=== PATIENT | female | born 1975 | race Caucasian/White ===

== ENCOUNTER 2017-01-09 01:11 | Emergency (ER) | payer OTHER ==
--- NOTE | 2017-01-09 01:36 | ERPHSYRPT ---
- History of Present Illness Time Seen by Provider: 01/09/17 01:25 Source: patient Patient Subjective Stated Complaint: PT STATES SINCE 01/05/17 SHE HAS HAD A FEVER AND PAIN IN HER MOUTH, STATES THE PAIN IS WORSE WHEN SHE SWALLOWS BUT HER TONGUE, TEETH, AND LIPS HURT WELL. REPORTS SHE HAS CONSISTENLY RUN A FEVER OF 101 AT HOME THAT SHE TAKES TYLENOL FOR. WAS SEEN AT [facility] 01/06/17, TESTED NEGATIVE FOR STREP AND WAS GIVEN AN ANTIOBIOTC INJECTION WELL AN RX. REPORTS SHE HAS BEEN UNDER A LOT OF STRESS LATELY WITH HER DAUGHTER GETTING , A IN THE FAMILY AND A COUSIN WHO IS MISSING. Triage Nursing Assessment: PT IS AOX3, PUPILS PERRL, PT IS FEBRILE, RESPS ARE EASY AND NON LABORED, SKIN IS FLUSHED, WARM TO TOUCH AND DRY. RADIAL PULSES STRONG AND EQUAL. MUCOUS MEMBRANES ARE MOIST. Physician History: The patient is a 42-year-old female complaining of a worsening sore throat for 3 days. She's had a fever of 101 intermittently for those 3 days. She wakes up at night with sweats. Her throat hurts to swallow. She went to [facility] and the strep test was negative but they gave her a shot of a steroid and prescription for Keflex. Her past medical history is significant for bariatric surgery and kidney stones. Timing/Duration: gradual onset Severity: severe ENT Location: throat Prearrival Treatment: prescription meds Modifying Factors: Improves With: nothing Associated Symptoms: ear pain (L), fever, sore throat Allergies/Adverse Reactions: metronidazole [From Flagyl] Allergy (Intermediate, Verified 01/09/17 01:25) Swelling of Tongue and Lips Metronidazole HCl [From Flagyl] Allergy (Intermediate, Verified 01/09/17 01:25) Swelling of Tongue and Lips morphine Allergy (Mild, Verified 01/09/17 01:25) Swelling strawberry [[place]] Allergy (Mild, Verified 01/09/17 01:25) Hives erythromycin base [Erythromycin Base] Adverse Reaction (Mild, Verified 01/09/17 01:25) Vomiting hydrocodone bitartrate [From Vicodin] Adverse Reaction (Mild, Verified 01/09/17 01:25) Vomiting banana [Banana] Adverse Reaction (Verified 01/09/17 01:25) Vomiting codeine [Codeine] Adverse Reaction (Verified 01/09/17 01:25) Vomiting egg Adverse Reaction (Verified 01/09/17 01:25) Vomiting Home Medications: Levothyroxine Sodium [Synthroid] 25 mcg PO DAILY 12/05/12 [History] Albuterol 2.5 mg/3 ml Neb [Proventil 2.5 mg/3 ml Neb] 2.5 mg IH DAILY [History] Calcium Carbonate [Calcium] 500 mg PO DAILY 11/05/14 [History] Calcium Carbonate/Vitamin D3 [Calcium 600-Vit D3 800 Caplet] 1 each PO DAILY [History] Loratadine 10 mg [Claritin 10 mg] 10 mg PO HS 11/05/14 [History] Multivitamin [Children's Multivitamins] 1 each PO DAILY 11/05/14 [History] Hx Tetanus, Diphtheria Vaccination/Date Given: No Hx Influenza Vaccination/Date Given: No Hx Pneumococcal Vaccination/Date Given: No Immunizations Up to Date: Yes - Review of Systems Constitutional: Fever Eyes: No Symptoms Ears, Nose, & Throat: Ear Pain, Throat Pain, Painful Swallowing Respiratory: No Cough, No Dyspnea Cardiac: No Chest Pain, No Edema, No Syncope Abdominal/Gastrointestinal: No Abdominal Pain, No Nausea, No Vomiting, No Diarrhea Genitourinary Symptoms: No Dysuria Musculoskeletal: No Back Pain, No Neck Pain Skin: No Rash Neurological: No Dizziness, No Focal Weakness, No Sensory Changes Psychological: No Symptoms Endocrine: No Symptoms Hematologic/Lymphatic: No Symptoms Immunological/Allergic: No Symptoms All Other Systems: Reviewed and Negative - Past Medical History Pertinent Past Medical History: Yes Neurological History: No Pertinent History ENT History: No Pertinent History Cardiac History: No Pertinent History Respiratory History: Asthma Endocrine Medical History: Hypothyroidism Musculoskeletal History: No Pertinent History GI Medical History: No Pertinent History, Gallbladder Disease History: Other Psycho-Social History: Anxiety Female Reproductive Disorders: Fibroids, Other Other Medical History: pt hx of kidney stones about seven years ago..passed them. Cysts on ovaries - Past Surgical History Past Surgical History: Yes Neuro Surgical History: No Pertinent History Cardiac: No Pertinent History Respiratory: No Pertinent History Gastrointestinal: Cholecystectomy Genitourinary: No Pertinent History Musculoskeletal: No Pertinent History Female Surgical History: Tubal Ligation, Other Other Surgical History: uterine ablation. WEIGHT LOSS SURGERY 2014 - Social History Smoking Status: Never smoker How long have you smoked: 5 YEARS Exposure to second hand smoke: No Drug Use: none Patient Lives Alone: No - Female History Hx Last Menstrual Period: ABLATION Hx Now: No - Nursing Vital Signs Nursing Vital Signs: Initial Vital Signs Temperature 100.2 F 01/09/17 01:14 Pulse Rate 112 H 01/09/17 01:14 Respiratory Rate 20 01/09/17 01:14 Blood Pressure 139/86 01/09/17 01:14 O2 Sat by Pulse Oximetry 96 01/09/17 01:14 Pain Scale Pain Intensity 10 - Physical Exam General Appearance: mild distress Eye Exam: bilateral eye: normal inspection, PERRL Ear Exam: left ear: TM normal Nasal Exam: normal inspection Throat Exam: tonsillar exudate, tonsillar swelling (aphthous ulcers in tongue tip and right pharynx.) Neck Exam: supple Cardiovascular/Respiratory Exam: normal breath sounds, regular rate/rhythm Abdominal Exam: non-tender, soft Neurologic Exam: alert, oriented x 3, sensation nml, No motor deficits Skin Exam: normal color, warm, dry SpO2 Interpretation: normal SpO2: 96 Oxygen Delivery: Room Air Ordered Tests: Active Orders 24 hr Category Date Time Status CULTURE, THROAT Stat Lab 01/09/17 01:42 Received STREP SCREEN-BETA A Stat Lab 01/09/17 01:42 Completed Medication Summary Discontinued Medications Generic Name Dose Route Start Last Admin Trade Name Freq PRN Reason Stop Dose Admin Al Hydrox/Mg Hydrox/Simethicone Confirm 01/09/17 01:49 Maalox Es 30 Ml Unit Dose Administered 01/09/17 01:50 Dose 60 ml .ROUTE .STK-MED ONE Lidocaine HCl Confirm 01/09/17 01:49 Xylocaine Hcl Viscous * Administered 01/09/17 01:50 Dose 15 ml .ROUTE .STK-MED ONE Magnesium Hydroxide 45 ml 01/09/17 01:45 01/09/17 01:53 Gi Cocktail 45 Ml (Maalox/Lidocaine) PO 01/09/17 01:46 45 ml STAT ONE Administration Lab/Rad Data: Laboratory Results 01/09/17 Range/Units 01:42 Streptococcus Screen NEGATIVE (Negative) - Progress Progress: improved Progress Note: 01/09/17 02:20 gargling a GI cocktail has lessened pt's throat pain. Counseled pt/family regarding: lab results, diagnosis - Departure Time of Disposition: 02:21 Departure Disposition: Home Clinical Impression: Pharyngitis Condition: Stable Critical Care Time: No Referrals: MAHSA MAYERS MD [Primary Care Provider] - Additional Instructions: Your rapid strep test was negative. You have pharyngitis. Continue gargling small sips of the GI cocktail as needed. Take Tylenol as needed. Discontinue the Keflex. Take Augmentin 875 one tablet twice a day for 10 days. Follow-up as needed. Prescriptions: Amoxicillin/Potassium Clav [Augmentin 875-125 Tablet] 875 mg PO BID #20 tablet
[2017-01-09] MEDS ORDERED: GI COCKTAIL 45 ML (Maalox/Lidocaine) PO ONE (01:45)
[2017-01-09] MEDS ORDERED: XYLOCAINE HCl Viscous ONE (01:49)
[2017-01-09] MEDS ORDERED: MAALOX ES 30 ML UNIT DOSE ONE (01:49)
[2017-01-09] MEDS ORDERED: ZOFRAN ODT 4 MG PO ONE (02:21)
[2017-01-09] MEDS ORDERED: ZOFRAN ODT 4 MG ONE (02:36)
[2017-01-09 03:17] VITALS: BP 124/78; PULSE 80; O2SAT 98
== END 2017-01-09 03:10 | disposition home or self-care (01) ==
LOC: ED 01:11
DX: J02.9 Acute pharyngitis, unspecified (principal); R50.9 Fever, unspecified
CPT/HCPCS: 87070; 87430; 99283; Q0162; A9270-GY

== ENCOUNTER 2017-12-10 15:23 | Emergency (ER) | payer BC ==
[2017-12-10] MEDS ORDERED: Zofran 4 MG/2 ML VIAL IV ONE (15:39)
[2017-12-10] MEDS ORDERED: Sodium Chloride 0.9% 1000 ML 1,000 ML IV STA (15:39)
--- NOTE | 2017-12-10 15:39 | ERPHSYRPT ---
- History of Present Illness Time Seen by Provider: 12/10/17 15:35 Historian: patient Exam Limitations: no limitations Physician History: The patient is a 42-year-old female complaining yesterday of not feeling well. She had a little bit of a neck pain on the left side yesterday. When she woke up today, she also had a headache and had used little bit of a stiff neck where it was painful for her to move her head from side to side. She also complained of some nausea and tingling in her left shoulder and left arm. She also states that she has some tingling in her upper left chest. She complains of mild shortness of breath. Most of her complaints are very vague. She did not go to work yesterday or today. Her past medical history is significant for depression and hypothyroidism. Timing/Duration: yesterday, gradual onset, worse Activities at Onset: none Quality: aching Location: shoulder Chest Pain Radiation: neck, arm Severity of Pain-Max: mild Severity of Pain-Current: mild Modifying Factors: Improves With: nothing Associated Symptoms: nausea, shortness of breath, No vomiting, No palpitations Prior Chest Pain/Cardiac Workup: no prior chest pain Nitro Today/Relief: no nitro taken today Aspirin Treatment Today: no aspirin today Allergies/Adverse Reactions: metronidazole [From Flagyl] Allergy (Intermediate, Verified 12/10/17 15:43) Swelling of Tongue and Lips Metronidazole HCl [From Flagyl] Allergy (Intermediate, Verified 12/10/17 15:43) Swelling of Tongue and Lips morphine Allergy (Mild, Verified 12/10/17 15:43) Swelling strawberry [[place]] Allergy (Mild, Verified 12/10/17 15:43) Hives erythromycin base [Erythromycin Base] Adverse Reaction (Mild, Verified 12/10/17 15:43) Vomiting hydrocodone bitartrate [From Vicodin] Adverse Reaction (Mild, Verified 12/10/17 15:43) Vomiting banana [Banana] Adverse Reaction (Verified 12/10/17 15:43) Vomiting codeine [Codeine] Adverse Reaction (Verified 12/10/17 15:43) Vomiting egg Adverse Reaction (Verified 12/10/17 15:43) Vomiting Home Medications: Levothyroxine Sodium [Synthroid] 25 mcg PO DAILY 12/05/12 [History] Albuterol 2.5 mg/3 ml Neb [Proventil 2.5 mg/3 ml Neb] 2.5 mg IH DAILY [History] Calcium Carbonate [Calcium] 500 mg PO DAILY 11/05/14 [History] Calcium Carbonate/Vitamin D3 [Calcium 600-Vit D3 800 Caplet] 1 each PO DAILY [History] Loratadine 10 mg [Claritin 10 mg] 10 mg PO HS 11/05/14 [History] Multivitamin [Children's Multivitamins] 1 each PO DAILY 11/05/14 [History] Cyanocobalamin (Vitamin B-12) [Cobal-1000] 1 ml WEEKLY 12/10/17 [History] Hx Tetanus, Diphtheria Vaccination/Date Given: No Hx Influenza Vaccination/Date Given: No Hx Pneumococcal Vaccination/Date Given: No - Review of Systems Constitutional: No Fever, No Chills Eyes: No Symptoms Ears, Nose, & Throat: No Symptoms Respiratory: Dyspnea Cardiac: Chest Pain Abdominal/Gastrointestinal: Nausea, No Abdominal Pain, No Vomiting, No Diarrhea Genitourinary Symptoms: No Dysuria Musculoskeletal: No Back Pain, No Neck Pain Skin: No Rash Neurological: No Dizziness, No Focal Weakness, No Sensory Changes Psychological: No Symptoms Endocrine: No Symptoms Hematologic/Lymphatic: No Symptoms Immunological/Allergic: No Symptoms All Other Systems: Reviewed and Negative - Past Medical History Pertinent Past Medical History: Yes Neurological History: No Pertinent History ENT History: No Pertinent History Cardiac History: No Pertinent History Respiratory History: Asthma Endocrine Medical History: Hypothyroidism Musculoskeletal History: No Pertinent History GI Medical History: No Pertinent History, Gallbladder Disease History: Other Psycho-Social History: Anxiety Female Reproductive Disorders: Fibroids, Other Other Medical History: pt hx of kidney stones about seven years ago..passed them. Cysts on ovaries - Past Surgical History Past Surgical History: Yes Neuro Surgical History: No Pertinent History Cardiac: No Pertinent History Respiratory: No Pertinent History Gastrointestinal: Cholecystectomy Genitourinary: No Pertinent History Musculoskeletal: No Pertinent History Female Surgical History: Tubal Ligation, Other Other Surgical History: uterine ablation. WEIGHT LOSS SURGERY 2014 - Social History Smoking Status: Never smoker How long have you smoked: 5 YEARS Exposure to second hand smoke: No Drug Use: none Patient Lives Alone: No - Nursing Vital Signs Nursing Vital Signs: Initial Vital Signs Temperature 97.0 F 12/10/17 15:37 Pulse Rate 80 12/10/17 15:37 Respiratory Rate 16 12/10/17 15:37 Blood Pressure 133/82 12/10/17 15:37 O2 Sat by Pulse Oximetry 99 12/10/17 15:37 Pain Scale Pain Intensity 0 - Physical Exam General Appearance: no apparent distress, alert Eye Exam: PERRL/EOMI, eyes nml inspection Ears, Nose, Throat Exam: normal ENT inspection, moist mucous membranes Neck Exam: normal inspection, non-tender, supple, full range of motion Respiratory Exam: normal breath sounds, lungs clear, No respiratory distress Cardiovascular Exam: regular rate/rhythm, normal heart sounds Gastrointestinal/Abdomen Exam: soft, No tenderness, No mass Pelvic Exam: not done Rectal Exam: not done Back Exam: normal inspection, No CVA tenderness, No vertebral tenderness Extremity Exam: normal inspection, normal range of motion Neurologic Exam: alert, oriented x 3, cooperative, normal mood/affect, sensation nml, No motor deficits Skin Exam: normal color, warm, dry SpO2 Interpretation: normal - Course EKG Interpreted by Me: RATE, Sinus Rhythm, NORMAL AXIS, NORMAL INTERVALS, NORMAL QRS, NORMAL ST-T - Radiology Exams Chest X-ray Interpretation: Interpreted by me, Negative Ordered Tests: Active Orders 24 hr Category Date Time Status Clean Catch Urine Specimen STAT Care 12/10/17 15:39 Active EKG-ER Only STAT Care 12/10/17 15:39 Active IV Insertion STAT Care 12/10/17 15:39 Active CHEST 2 VIEWS (PA AND LAT) Stat Exams 12/10/17 15:40 Taken CBC W DIFF Stat Lab 12/10/17 15:40 Completed CMP Stat Lab 12/10/17 15:40 Completed CULTURE,URINE Stat Lab 12/10/17 17:11 Received TROPONIN Q3H Lab 12/10/17 15:40 Completed TROPONIN Q3H Lab 12/10/17 18:45 Ordered TROPONIN Q3H Lab 12/10/17 21:45 Ordered TROPONIN Q3H Lab 12/11/17 00:45 Ordered TROPONIN Q3H Lab 12/11/17 03:45 Ordered UA W/ MICROSCOPIC Stat Lab 12/10/17 17:11 Completed Medication Summary Generic Name Dose Route Start Last Admin Trade Name Freq PRN Reason Stop Dose Admin Cephalexin HCl 1,000 mg 12/10/17 17:56 Keflex 500 Mg PO 12/10/17 17:57 STAT ONE Discontinued Medications Generic Name Dose Route Start Last Admin Trade Name Danita PRN Reason Stop Dose Admin Sodium Chloride 1,000 mls @ 999 mls/hr 12/10/17 15:39 12/10/17 16:20 Sodium Chloride 0.9% 1000 Ml IV 12/10/17 16:39 999 mls/hr .Q1H1M STA Administration Sodium Chloride Confirm 12/10/17 15:54 Sodium Chloride 0.9% 1000 Ml Administered 12/10/17 15:55 Dose 1,000 mls @ ud .ROUTE .STK-MED ONE Ondansetron HCl 4 mg 12/10/17 15:39 12/10/17 16:21 Zofran 4 Mg/2 Ml Vial IV 12/10/17 15:40 4 mg STAT ONE Administration Ondansetron HCl Confirm 12/10/17 15:54 Zofran 4 Mg/2 Ml Vial Administered 12/10/17 15:55 Dose 4 mg .ROUTE .STK-MED ONE Lab/Rad Data: Laboratory Result Diagrams 12/10/17 15:40 12/10/17 15:40 Laboratory Results 12/10/17 12/10/17 12/10/17 Range/Units 17:11 15:40 15:40 WBC (4.0-10.5) K/mm3 RBC (4.1-5.4) M/mm3 Hgb (12.0-16.0) gm/dl Hct (35-47) % MCV (78-100) fl MCH (26-32) pg MCHC (32-36) g/dl RDW (11.5-14.0) % Plt Count (150-450) K/mm3 MPV (6-9.5) fl Gran % (36.0-66.0) % Eos # (Auto) (0-0.5) Absolute Lymphs (auto) (1.0-4.6) Absolute Monos (auto) (0.0-1.3) Lymphocytes % (24.0-44.0) % Monocytes % (0.0-12.0) % Eosinophils % (0.00-5.0) % Basophils % (0.0-0.4) % Absolute Granulocytes (1.4-6.9) Basophils # (0-0.4) Sodium 143 (137-145) mmol/L Potassium 3.9 (3.5-5.1) mmol/L Chloride 107 (98-107) mmol/L Carbon Dioxide 27 (22-30) mmol/L Anion Gap 13.6 (5-15) MEQ/L BUN 19 H (7-17) mg/dL Creatinine 0.77 (0.52-1.04) mg/dL Estimated GFR > 60.0 ML/MIN Glucose 95 (74-106) mg/dL Calcium 9.3 (8.4-10.2) mg/dL Total Bilirubin 0.20 (0.2-1.3) mg/dL AST 21 (14-36) U/L ALT 23 (0-35) U/L Alkaline Phosphatase 60 (38-126) U/L Troponin I < 0.012 (0.000-0.034) ng/mL Serum Total Protein 8.0 (6.3-8.2) g/dL Albumin 4.5 (3.5-5.0) g/dL Ur Collection Type VOID Urine Color YELLOW (YELLOW) Urine Appearance CLEAR (CLEAR) Urine pH 7.0 (5-6) Ur Specific [place] 1.015 (1.005-1.025) Urine Protein NEGATIVE (Negative) Urine Ketones NEGATIVE (NEGATIVE) Urine Blood NEGATIVE (0-5) Myles/ul Urine Nitrite NEGATIVE (NEGATIVE) Urine Bilirubin NEGATIVE (NEGATIVE) Urine Urobilinogen NORMAL (0-1) mg/dL Ur Leukocyte Esterase 2+ (NEGATIVE) Urine Microscopic RBC 0-2 (0-2) /HPF Urine Microscopic WBC 10-15 (0-5) /HPF Ur Epithelial Cells MODERATE (FEW) /HPF Urine Bacteria FEW (NEGATIVE) /HPF Urine Culture Reflexed YES (NO) Urine Glucose NEGATIVE (NEGATIVE) mg/dL Specimen Received 12/10 170912/10/17 Range/Units 15:40 WBC 8.3 (4.0-10.5) K/mm3 RBC 4.31 (4.1-5.4) M/mm3 Hgb 13.2 (12.0-16.0) gm/dl Hct 39.2 (35-47) % MCV 91.0 (78-100) fl MCH 30.6 (26-32) pg MCHC 33.7 (32-36) g/dl RDW 13.5 (11.5-14.0) % Plt Count 331 (150-450) K/mm3 MPV 10.2 H (6-9.5) fl Gran % 58.7 (36.0-66.0) % Eos # (Auto) 0.40 (0-0.5) Absolute Lymphs (auto) 2.36 (1.0-4.6) Absolute Monos (auto) 0.63 (0.0-1.3) Lymphocytes % 28.3 (24.0-44.0) % Monocytes % 7.6 (0.0-12.0) % Eosinophils % 4.8 (0.00-5.0) % Basophils % 0.6 (0.0-0.4) % Absolute Granulocytes 4.90 (1.4-6.9) Basophils # 0.05 (0-0.4) Sodium (137-145) mmol/L Potassium (3.5-5.1) mmol/L Chloride (98-107) mmol/L Carbon Dioxide (22-30) mmol/L Anion Gap (5-15) MEQ/L BUN (7-17) mg/dL Creatinine (0.52-1.04) mg/dL Estimated GFR ML/MIN Glucose (74-106) mg/dL Calcium (8.4-10.2) mg/dL Total Bilirubin (0.2-1.3) mg/dL AST (14-36) U/L ALT (0-35) U/L Alkaline Phosphatase (38-126) U/L Troponin I (0.000-0.034) ng/mL Serum Total Protein (6.3-8.2) g/dL Albumin (3.5-5.0) g/dL Ur Collection Type Urine Color (YELLOW) Urine Appearance (CLEAR) Urine pH (5-6) Ur Specific [place] (1.005-1.025) Urine Protein (Negative) Urine Ketones (NEGATIVE) Urine Blood (0-5) Myles/ul Urine Nitrite (NEGATIVE) Urine Bilirubin (NEGATIVE) Urine Urobilinogen (0-1) mg/dL Ur Leukocyte Esterase (NEGATIVE) Urine Microscopic RBC (0-2) /HPF Urine Microscopic WBC (0-5) /HPF Ur Epithelial Cells (FEW) /HPF Urine Bacteria (NEGATIVE) /HPF Urine Culture Reflexed (NO) Urine Glucose (NEGATIVE) mg/dL Specimen Received - Progress Progress: improved Air Movement: good Blood Culture(s) Obtained: No Antibiotics given: Yes Counseled pt/family regarding: lab results, diagnosis, rad results - Departure Time of Disposition: 17:58 Departure Disposition: Home Clinical Impression: Stress, Nausea, UTI (urinary tract infection) Condition: Stable Critical Care Time: No Referrals: MAHSA MAYERS MD [Primary Care Provider] - Additional Instructions: You have left-sided neck and left sided chest tightness likely due to stress. You have mild nausea. You have a UTI. You were given Zofran 4 mg by IV and fluids in the ER. You were given Keflex 500 mg orally in the ER. Take the next Keflex 500 mg given to you in the ER in the morning. Take Keflex 500 mg 4 times a day for 7 days. Follow-up with your primary medical doctor early next week. Prescriptions: Cephalexin Mh 500 mg [Keflex 500 mg] 1 cap PO QID #28 capsule
[2017-12-10] MEDS ORDERED: Sodium Chloride 0.9% 1000 ML 1,000 ML ONE (15:54)
[2017-12-10] MEDS ORDERED: Zofran 4 MG/2 ML VIAL ONE (15:54)
[2017-12-10 16:02] LABS: ALBUMIN 4.5 g/dL (3.5-5.0); ALKALINE PHOSPHATASE 60 U/L (38-126); ANION GAP 13.6 MEQ/L (5-15); BLOOD UREA NITROGEN 19 mg/dL (7-17); CHLORIDE 107 mmol/L (98-107); Calcium 9.3 mg/dL (8.4-10.2); Carbon Dioxide 27 mmol/L (22-30); Creatinine 1 0.77 mg/dL (0.52-1.04); Glucose 95 mg/dL (74-106); Potassium 3.9 mmol/L (3.5-5.1); SGOT/AST 21 U/L (14-36); SGPT/ALT 23 U/L (0-35); SODIUM 143 mmol/L (137-145)
[2017-12-10 16:06] LABS: BASOPHIL % 0.6 % (0.0-0.4); Basophil (Absolute #) 0.05 (0-0.4); Eosinophil % 4.8 % (0.00-5.0); Granulocytes % 58.7 % (36.0-66.0); Hematocrit 39.2 % (35-47); Hemoglobin 13.2 gm/dl (12.0-16.0); Lymphocyte (Absolute #) 2.36 (1.0-4.6); Lymphocytes % 28.3 % (24.0-44.0); Mean Corpuscular Hemoglobin 30.6 pg (26-32); Mean Corpuscular Hgb Concent. 33.7 g/dl (32-36); Mean Platelet Volume 10.2 fl (6-9.5); Monocyte (Absolute #) 0.63 (0.0-1.3); Monocytes % 7.6 % (0.0-12.0); Platelet Count 331 K/mm3 (150-450); Red Blood Count 4.31 M/mm3 (4.1-5.4); Red Cell Distribution Width 13.5 % (11.5-14.0); White Blood Count 8.3 K/mm3 (4.0-10.5)
[2017-12-10 17:20] LABS: Appearance CLEAR (CLEAR); Glucose NEGATIVE (NEGATIVE); Ketones NEGATIVE (NEGATIVE); Leukocyte Esterase 2+ (NEGATIVE); Nitrite NEGATIVE (NEGATIVE); Protein,Urine Dip NEGATIVE (Negative); Specific Gravity 1.015 (1.005-1.025)
[2017-12-10 17:21] LABS: Bilirubin NEGATIVE (NEGATIVE); Blood NEGATIVE Ery/ul (0-5); Urobilinogen NORMAL mg/dL (0-1)
[2017-12-10 17:23] LABS: Epithelial Cells MODERATE /HPF (FEW); RBC 0-2 /HPF (0-2)
[2017-12-10 17:24] LABS: Bacteria FEW /HPF (NEGATIVE)
[2017-12-10] MEDS ORDERED: KEFLEX 500 MG PO ONE (17:56)
[2017-12-10] MEDS ORDERED: KEFLEX 500 MG ONE (18:07)
[2017-12-10 18:26] VITALS: BP 108/66; PULSE 71; O2SAT 97
--- NOTE | 2017-12-10 22:06 | XRAY ---
Indication: Chest pain. Comparison: May 21, 2013. PA/lateral chest demonstrates normal heart, lungs, and bony thorax.
== END 2017-12-10 18:31 | disposition home or self-care (01) ==
LOC: ED 15:23
DX: F43.9 Reaction to severe stress, unspecified (principal); R11.0 Nausea; N39.0 Urinary tract infection, site not specified; R51 Headache; M54.2 Cervicalgia; R06.02 Shortness of breath; Z79.899 Other long term (current) drug therapy
CPT/HCPCS: 36000; 36415; 71046; 80053; 81000; 84484; 85025; 87086; 93005; 96360; 96374; 99284; J2405; A9270-GY

== ENCOUNTER 2019-12-24 04:34 | Observation (INO) | payer BC, OTHER ==
--- NOTE | 2019-12-24 04:54 | ERPHSYRPT ---
- History of Present Illness Source: patient Exam Limitations: no limitations Timing/Duration: week(s) (1), worse Fever Severity: moderate Associated Symptoms: cough, muscle aches, shortness of breath, No abdominal pain, No chest pain, No headache, No nausea/vomiting, No rhinorrhea, No sore throat, No weakness Hx Tetanus, Diphtheria Vaccination/Date Given: No Hx Influenza Vaccination/Date Given: No Hx Pneumococcal Vaccination/Date Given: No <JADE SOLIS - Last Filed: 12/24/19 06:53> <CRISITNA PACHECO - Last Filed: 12/24/19 13:30> - History of Present Illness Time Seen by Provider: 12/24/19 04:53 Physician History: This is a 44-year-old white female who has been home and under quarantine because of exposure to individuals with positive COVID-19 tests. She works at [employer]. The patient has been tested in the past for COVID-19 virus and in the past is been negative. Patient has had fever, shortness of breath, dizziness and cough for approximately 1 week. Patient's temperature at home was 102 F. She took a gram of Tylenol and on arrival to the emergency department her temperature was 100.6 F. Patient has had associated muscle aches and arthralgias. Patient took an old Z-behzad during the last week. Patient has not lost her taste or smell. Patient has a history of hypothyroidism and asthma. Patient has had a Michael-en-Y weight loss surgical procedure performed in the past. She is a former smoker. She denies nausea vomiting and diarrhea. She has no chest pain and she denies abdominal pain (JADE SOLIS) Allergies/Adverse Reactions: metronidazole [From Flagyl] Allergy (Intermediate, Verified 12/24/19 05:06) Swelling of Tongue and Lips Metronidazole HCl [From Flagyl] Allergy (Intermediate, Verified 12/24/19 05:06) Swelling of Tongue and Lips morphine Allergy (Mild, Verified 12/24/19 05:06) Swelling strawberry [[place]] Allergy (Mild, Verified 12/24/19 05:06) Hives erythromycin base [Erythromycin Base] Adverse Reaction (Mild, Verified 12/24/19 05:06) Vomiting hydrocodone bitartrate [From Vicodin] Adverse Reaction (Mild, Verified 12/24/19 05:06) Vomiting banana [Banana] Adverse Reaction (Verified 12/24/19 05:06) Vomiting codeine [Codeine] Adverse Reaction (Verified 12/24/19 05:06) Vomiting egg Adverse Reaction (Verified 12/24/19 05:06) Vomiting Home Medications: Levothyroxine Sodium [Synthroid] 25 mcg PO DAILY 12/05/12 [History] Albuterol 2.5 mg/3 ml Neb [Proventil 2.5 mg/3 ml Neb] 2.5 mg IH DAILY 11/05/14 [History] Calcium Carbonate [Calcium] 200 mg PO TID 11/05/14 [History] Calcium Carbonate/Vitamin D3 [Calcium 600-Vit D3 800 Caplet] 1 each PO DAILY 11/05/14 [History] Multivitamin [Children's Multivitamins] 1 each PO DAILY 11/05/14 [History] Cyanocobalamin (Vitamin B-12) [Cobal-1000] 1 ml SL DAILY 12/10/17 [History] Travel Risk - International Travel Have you traveled outside of the country in past 3 weeks: No - Coronavirus Screening Are you exhibiting any of the following symptoms?: Yes Symptoms: Fever, Cough: New Onset, Shortness of Breath, Headaches/Body Aches/Fatigue Close contact with a COVID-19 positive Pt in past 14-21 Days: Yes <JADE SOLIS - Last Filed: 12/24/19 06:53> - Review of Systems Constitutional: Fever Eyes: No Symptoms Ears, Nose, & Throat: No Symptoms Respiratory: Cough, Dyspnea Cardiac: No Symptoms Abdominal/Gastrointestinal: No Symptoms Genitourinary Symptoms: No Symptoms Musculoskeletal: Arthralgias, Myalgias Skin: No Symptoms Neurological: Dizziness Psychological: No Symptoms Endocrine: No Symptoms Hematologic/Lymphatic: No Symptoms Immunological/Allergic: No Symptoms All Other Systems: Reviewed and Negative <JADE SOLIS - Last Filed: 12/24/19 06:53> - Past Medical History Pertinent Past Medical History: Yes Neurological History: No Pertinent History ENT History: No Pertinent History Cardiac History: No Pertinent History Respiratory History: Asthma Endocrine Medical History: Hypothyroidism Musculoskeletal History: No Pertinent History GI Medical History: No Pertinent History, Gallbladder Disease History: Other Psycho-Social History: Anxiety Female Reproductive Disorders: Fibroids, Other Other Medical History: pt hx of kidney stones about seven years ago..passed them. Cysts on ovaries - Past Surgical History Past Surgical History: Yes Neuro Surgical History: No Pertinent History Cardiac: No Pertinent History Respiratory: No Pertinent History Gastrointestinal: Cholecystectomy Genitourinary: No Pertinent History Musculoskeletal: No Pertinent History Female Surgical History: Tubal Ligation, Other Other Surgical History: uterine ablation. WEIGHT LOSS SURGERY 2014 - Social History Smoking Status: Never smoker How long have you smoked: 5 YEARS Exposure to second hand smoke: No Drug Use: none Patient Lives Alone: No <JADE SOLIS - Last Filed: 12/24/19 06:53> - Nursing Vital Signs Nursing Vital Signs: Initial Vital Signs Temperature 100.6 F 12/24/19 04:55 Pulse Rate 106 H 12/24/19 04:55 Respiratory Rate 18 12/24/19 04:55 Blood Pressure 121/71 12/24/19 04:55 O2 Sat by Pulse Oximetry 95 12/24/19 04:55 Pain Scale Pain Intensity 0 - Course Nursing assessment & vital signs reviewed: Yes EKG Interpreted by Me: RATE (102), NORMAL AXIS, NORMAL INTERVALS, NORMAL QRS, Other (There are no ischemic changes on today's EKG. There is no change from comparison EKG dated 12/10/2017) <JADE SOLIS - Last Filed: 12/24/19 06:53> - CT Exams Chest CT Interpretation: Discussed w/radiologist (CTA chest neg for PE, but w Covid19 pneumonia appearance) <CRISTINA PACHECO - Last Filed: 12/24/19 13:30> Ordered Tests: Active Orders 24 hr Category Date Time Status EKG-ER Only STAT Care 12/24/19 04:56 Completed IV Insertion STAT Care 12/24/19 04:56 Completed CHEST 1 VIEW (PORTABLE) Stat Exams 12/24/19 05:00 Completed CHEST WITH CONTRAST [CT] Stat Exams 12/24/19 06:52 Completed BLOOD CULTURE Stat Lab 12/24/19 05:09 Received CBC Routine Lab 12/24/19 10:53 Completed CBC Stat Lab 12/24/19 05:20 Completed CMP AM.LAB Lab 12/25/19 04:00 Ordered CMP Stat Lab 12/24/19 05:09 Completed D-DIMER QUANTITATIVE Stat Lab 12/24/19 05:09 Completed Ferritin Stat Lab 12/24/19 05:09 Completed LDH-LACTATE DEHYDROGENASE Stat Lab 12/24/19 05:09 Completed Lactic Acid Stat Lab 12/24/19 05:15 Completed Jerauld Screen Stat Lab 12/24/19 05:09 Completed PROTIME WITH INR Stat Lab 12/24/19 05:09 Completed TROPONIN Q3H Lab 12/24/19 05:09 Completed TROPONIN Q3H Lab 12/24/19 08:53 Completed TROPONIN Q3H Lab 12/24/19 12:25 Completed TROPONIN Q3H Lab 12/24/19 14:00 Ordered TROPONIN Q3H Lab 12/24/19 17:00 Ordered UA W/RFX UR CULTURE Stat Lab 12/24/19 05:01 Completed Respiratory Therapy Assessment DAILY RT 12/24/19 05:47 Completed Transfer Order Routine Transfer 12/24/19 Completed Medication Summary Generic Name Dose Route Start Last Admin Trade Name Freq PRN Reason Stop Dose Admin Acetaminophen 650 mg 12/24/19 10:53 Tylenol 325 Mg PO 01/23/20 10:52 Q4H PRN PRN PAIN AND/OR FEVER Albuterol Sulfate 4 puff 12/24/19 15:00 12/24/19 12:52 Ventolin Common Canister IH 01/23/20 14:59 4 puff QIDRT JEREMIAS Administration Dexamethasone Sodium Phosphate 4 mg 12/24/19 22:00 Decadron 4 Mg Inj IV 01/23/20 21:59 BID JEREMIAS Enoxaparin Sodium 40 mg 12/24/19 12:00 12/24/19 12:10 Enoxaparin Sodium SQ 01/23/20 11:59 40 mg DAILY JEREMIAS Administration Sodium Chloride 500 mls @ 50 mls/hr 12/24/19 05:15 12/24/19 12:09 Sodium Chloride 0.9% 500 Ml IV 01/23/20 05:14 50 mls/hr .Q10H JEREMIAS Administration Ondansetron HCl 4 mg 12/24/19 10:53 Zofran 4 Mg/2 Ml Vial IV 01/23/20 10:52 Q6H PRN PRN NAUSEA/VOMITING Pantoprazole Sodium 40 mg 12/24/19 12:00 12/24/19 12:09 Protonix 40 Mg Iv IV 01/23/20 11:59 40 mg Q24H10 JEREMIAS Administration Discontinued Medications Generic Name Dose Route Start Last Admin Trade Name Danita PRN Reason Stop Dose Admin Acetaminophen 1,000 mg 12/24/19 04:56 12/24/19 05:10 Tylenol Extra Strength 500 Mg PO 12/24/19 04:57 1,000 mg STAT STA Administration Acetaminophen Confirm 12/24/19 05:08 Tylenol Extra Strength 500 Mg Administered 12/24/19 05:09 Dose 1,000 mg .ROUTE .STK-MED ONE Albuterol Sulfate 0 gm 12/24/19 06:00 12/24/19 05:49 Ventolin Hfa Mdi IH 01/23/20 05:59 8 gm 1XONLY JEREMIAS Administration Dexamethasone Sodium Phosphate 10 mg 12/24/19 06:14 12/24/19 06:36 Decadron 10mg Inj. IV 12/24/19 06:15 10 mg STAT ONE Administration Dexamethasone Sodium Phosphate Confirm 12/24/19 06:32 Decadron 10mg Inj. Administered 12/24/19 06:33 Dose 10 mg .ROUTE .STK-MED ONE Dexamethasone Sodium Phosphate 4 mg 12/24/19 10:47 12/24/19 10:58 Decadron 4 Mg Inj IV 12/24/19 10:48 4 mg STAT ONE Administration Dexamethasone Sodium Phosphate Confirm 12/24/19 10:55 Decadron 4 Mg Inj Administered 12/24/19 10:56 Dose 4 mg .ROUTE .STK-MED ONE Diphenhydramine HCl 50 mg 12/24/19 06:51 12/24/19 06:56 Benadryl 12.5 Mg/5 Ml PO 12/24/19 06:52 50 mg STAT ONE Administration Diphenhydramine HCl Confirm 12/24/19 06:56 Benadryl 12.5 Mg/5 Ml Administered 12/24/19 06:57 Dose 10 mg .ROUTE .STK-MED ONE Guaifenesin/Dextromethorphan 10 ml 12/24/19 06:23 12/24/19 06:38 Robitussin-Dm Syrup PO 12/24/19 06:24 10 ml STAT ONE Administration Azithromycin 500 mg in 250 mls @ 250 mls/hr 12/24/19 06:15 12/24/19 07:03 Zithromax 500 Mg/ 250 Ml Nacl Premix IV 12/24/19 07:14 Not Given STAT STA Ceftriaxone Sodium/Dextrose 1 g in 50 mls @ 100 mls/hr 12/24/19 06:22 12/24/19 09:53 Rocephin 1 Gm-D5w 50 Ml Bag IV 12/24/19 06:51 Infused STAT STA Infusion Ceftriaxone Sodium/Dextrose Confirm 12/24/19 06:33 Rocephin 1 Gm-D5w 50 Ml Bag Administered 12/24/19 06:34 Dose 1 g in 50 mls @ ud IV .STK-MED ONE Remdesivir 200 mg/ Sodium 250 mls @ 250 mls/hr 12/24/19 11:30 12/24/19 11:49 Chloride IV 12/24/19 12:29 250 mls/hr 1130 JEREMIAS Administration Sodium Chloride 1,000 mls @ 0 mls/hr 12/24/19 11:00 Sodium Chloride 0.9% 1000 Ml IV 01/23/20 10:59 .Q0M JEREMIAS KVO Pantoprazole Sodium 40 mg 12/25/19 10:00 Protonix 40 Mg Iv IV 01/24/20 09:59 Q24H10 JEREMIAS Lab/Rad Data: Laboratory Result Diagrams 12/24/19 10:53 12/24/19 05:09 Laboratory Results 12/24/19 12/24/19 12/24/19 Range/Units 10:53 08:53 05:20 WBC 5.1 (4.0-10.5) K/mm3 RBC 3.97 L (4.1-5.4) M/mm3 Hgb 12.1 (12.0-16.0) gm/dl Hct 37.4 (35-47) % MCV 94.2 (78-100) fl MCH 30.5 (26-32) pg MCHC 32.4 (32-36) g/dl RDW 14.6 H (11.5-14.0) % Plt Count 230 (150-450) K/mm3 MPV 10.7 (7.5-11.0) fl PT (9.95-12.35) SECONDS INR (0.8-3.0) D-Dimer (215-500) ng/mL Sodium (137-145) mmol/L Potassium (3.5-5.1) mmol/L Chloride (98-107) mmol/L Carbon Dioxide (22-30) mmol/L Anion Gap (5-15) MEQ/L BUN (7-17) mg/dL Creatinine (0.52-1.04) mg/dL Estimated GFR ML/MIN Glucose (74-106) mg/dL Lactic Acid (0.4-2.0) Calcium (8.4-10.2) mg/dL Ferritin (6.24-137) ng/mL Total Bilirubin (0.2-1.3) mg/dL AST (14-36) U/L ALT (0-35) U/L Alkaline Phosphatase (38-126) U/L Lactate Dehydrogenase (120-246) U/L Troponin I < 0.012 (0.000-0.034) ng/mL Serum Total Protein (6.3-8.2) g/dL Albumin (3.5-5.0) g/dL Urine Color (YELLOW) Urine Appearance (CLEAR) Urine pH (5-6) Ur Specific [place] (1.005-1.025) Urine Protein (Negative) Urine Ketones (NEGATIVE) Urine Blood (0-5) Myles/ul Urine Nitrite (NEGATIVE) Urine Bilirubin (NEGATIVE) Urine Urobilinogen (0-1) mg/dL Ur Leukocyte Esterase (NEGATIVE) Urine WBC (Auto) (0-5) /HPF Urine RBC (Auto) (0-2) /HPF U Hyaline Cast (Auto) (0-2) /LPF U Epithel Cells (Auto) (FEW) /HPF Urine Bacteria (Auto) (NEGATIVE) /HPF Calcium Oxalate Crystal (NEGATIVE) /HPF Urine Mucus (Auto) (NEGATIVE) /HPF Urine Culture Reflexed (NO) Urine Glucose (NEGATIVE) mg/dL Monoscreen (Negative) Influenza Type A Ag (NEGATIVE) Influenza Type B Ag (NEGATIVE) RSV (PCR) (Negative) SARS-CoV-2 (PCR) POSITIVE A (NEGATIVE) Group A Strep Antibody (NEGATIVE) 12/24/19 12/24/19 12/24/19 Range/Units 05:20 05:20 05:15 WBC 4.7 (4.0-10.5) K/mm3 RBC 3.91 L (4.1-5.4) M/mm3 Hgb 11.8 L (12.0-16.0) gm/dl Hct 36.2 (35-47) % MCV 92.6 (78-100) fl MCH 30.2 (26-32) pg MCHC 32.6 (32-36) g/dl RDW 14.5 H (11.5-14.0) % Plt Count 217 (150-450) K/mm3 MPV 10.5 (7.5-11.0) fl PT (9.95-12.35) SECONDS INR (0.8-3.0) D-Dimer (215-500) ng/mL Sodium (137-145) mmol/L Potassium (3.5-5.1) mmol/L Chloride (98-107) mmol/L Carbon Dioxide (22-30) mmol/L Anion Gap (5-15) MEQ/L BUN (7-17) mg/dL Creatinine (0.52-1.04) mg/dL Estimated GFR ML/MIN Glucose (74-106) mg/dL Lactic Acid 1.6 (0.4-2.0) Calcium (8.4-10.2) mg/dL Ferritin (6.24-137) ng/mL Total Bilirubin (0.2-1.3) mg/dL AST (14-36) U/L ALT (0-35) U/L Alkaline Phosphatase (38-126) U/L Lactate Dehydrogenase (120-246) U/L Troponin I (0.000-0.034) ng/mL Serum Total Protein (6.3-8.2) g/dL Albumin (3.5-5.0) g/dL Urine Color (YELLOW) Urine Appearance (CLEAR) Urine pH (5-6) Ur Specific [place] (1.005-1.025) Urine Protein (Negative) Urine Ketones (NEGATIVE) Urine Blood (0-5) Myles/ul Urine Nitrite (NEGATIVE) Urine Bilirubin (NEGATIVE) Urine Urobilinogen (0-1) mg/dL Ur Leukocyte Esterase (NEGATIVE) Urine WBC (Auto) (0-5) /HPF Urine RBC (Auto) (0-2) /HPF U Hyaline Cast (Auto) (0-2) /LPF U Epithel Cells (Auto) (FEW) /HPF Urine Bacteria (Auto) (NEGATIVE) /HPF Calcium Oxalate Crystal (NEGATIVE) /HPF Urine Mucus (Auto) (NEGATIVE) /HPF Urine Culture Reflexed (NO) Urine Glucose (NEGATIVE) mg/dL Monoscreen (Negative) Influenza Type A Ag NEGATIVE (NEGATIVE) Influenza Type B Ag NEGATIVE (NEGATIVE) RSV (PCR) NEGATIVE (Negative) SARS-CoV-2 (PCR) (NEGATIVE) Group A Strep Antibody NOT DETECTED (NEGATIVE) 12/24/19 12/24/19 12/24/19 Range/Units 05:09 05:09 05:09 WBC (4.0-10.5) K/mm3 RBC (4.1-5.4) M/mm3 Hgb (12.0-16.0) gm/dl Hct (35-47) % MCV (78-100) fl MCH (26-32) pg MCHC (32-36) g/dl RDW (11.5-14.0) % Plt Count (150-450) K/mm3 MPV (7.5-11.0) fl PT (9.95-12.35) SECONDS INR (0.8-3.0) D-Dimer (215-500) ng/mL Sodium (137-145) mmol/L Potassium (3.5-5.1) mmol/L Chloride (98-107) mmol/L Carbon Dioxide (22-30) mmol/L Anion Gap (5-15) MEQ/L BUN (7-17) mg/dL Creatinine (0.52-1.04) mg/dL Estimated GFR ML/MIN Glucose (74-106) mg/dL Lactic Acid (0.4-2.0) Calcium (8.4-10.2) mg/dL Ferritin 169 H (6.24-137) ng/mL Total Bilirubin (0.2-1.3) mg/dL AST (14-36) U/L ALT (0-35) U/L Alkaline Phosphatase (38-126) U/L Lactate Dehydrogenase (120-246) U/L Troponin I < 0.012 (0.000-0.034) ng/mL Serum Total Protein (6.3-8.2) g/dL Albumin (3.5-5.0) g/dL Urine Color (YELLOW) Urine Appearance (CLEAR) Urine pH (5-6) Ur Specific [place] (1.005-1.025) Urine Protein (Negative) Urine Ketones (NEGATIVE) Urine Blood (0-5) Myles/ul Urine Nitrite (NEGATIVE) Urine Bilirubin (NEGATIVE) Urine Urobilinogen (0-1) mg/dL Ur Leukocyte Esterase (NEGATIVE) Urine WBC (Auto) (0-5) /HPF Urine RBC (Auto) (0-2) /HPF U Hyaline Cast (Auto) (0-2) /LPF U Epithel Cells (Auto) (FEW) /HPF Urine Bacteria (Auto) (NEGATIVE) /HPF Calcium Oxalate Crystal (NEGATIVE) /HPF Urine Mucus (Auto) (NEGATIVE) /HPF Urine Culture Reflexed (NO) Urine Glucose (NEGATIVE) mg/dL Monoscreen NEGATIVE (Negative) Influenza Type A Ag (NEGATIVE) Influenza Type B Ag (NEGATIVE) RSV (PCR) (Negative) SARS-CoV-2 (PCR) (NEGATIVE) Group A Strep Antibody (NEGATIVE) 12/24/19 12/24/19 12/24/19 Range/Units 05:09 05:09 05:01 WBC (4.0-10.5) K/mm3 RBC (4.1-5.4) M/mm3 Hgb (12.0-16.0) gm/dl Hct (35-47) % MCV (78-100) fl MCH (26-32) pg MCHC (32-36) g/dl RDW (11.5-14.0) % Plt Count (150-450) K/mm3 MPV (7.5-11.0) fl PT 14.1 H (9.95-12.35) SECONDS INR 1.25 (0.8-3.0) D-Dimer 875 H* (215-500) ng/mL Sodium 137 (137-145) mmol/L Potassium 3.7 (3.5-5.1) mmol/L Chloride 106 (98-107) mmol/L Carbon Dioxide 25 (22-30) mmol/L Anion Gap 10.2 (5-15) MEQ/L BUN 11 (7-17) mg/dL Creatinine 0.63 (0.52-1.04) mg/dL Estimated GFR > 60.0 ML/MIN Glucose 110 H (74-106) mg/dL Lactic Acid (0.4-2.0) Calcium 8.6 (8.4-10.2) mg/dL Ferritin (6.24-137) ng/mL Total Bilirubin 0.40 (0.2-1.3) mg/dL AST 38 H (14-36) U/L ALT 24 (0-35) U/L Alkaline Phosphatase 61 (38-126) U/L Lactate Dehydrogenase 249 H (120-246) U/L Troponin I (0.000-0.034) ng/mL Serum Total Protein 7.2 (6.3-8.2) g/dL Albumin 3.7 (3.5-5.0) g/dL Urine Color YELLOW (YELLOW) Urine Appearance SLIGHTLY CLOUDY (CLEAR) Urine pH 5.0 (5-6) Ur Specific [place] 1.024 (1.005-1.025) Urine Protein 30 (Negative) Urine Ketones NEGATIVE (NEGATIVE) Urine Blood NEGATIVE (0-5) Myles/ul Urine Nitrite NEGATIVE (NEGATIVE) Urine Bilirubin NEGATIVE (NEGATIVE) Urine Urobilinogen NEGATIVE (0-1) mg/dL Ur Leukocyte Esterase NEGATIVE (NEGATIVE) Urine WBC (Auto) 0-2 (0-5) /HPF Urine RBC (Auto) 0-2 (0-2) /HPF U Hyaline Cast (Auto) 0-2 (0-2) /LPF U Epithel Cells (Auto) RARE (FEW) /HPF Urine Bacteria (Auto) RARE (NEGATIVE) /HPF Calcium Oxalate Crystal 11-25 (NEGATIVE) /HPF Urine Mucus (Auto) SLIGHT (NEGATIVE) /HPF Urine Culture Reflexed NO (NO) Urine Glucose NEGATIVE (NEGATIVE) mg/dL Monoscreen (Negative) Influenza Type A Ag (NEGATIVE) Influenza Type B Ag (NEGATIVE) RSV (PCR) (Negative) SARS-CoV-2 (PCR) (NEGATIVE) Group A Strep Antibody (NEGATIVE) - Progress Progress: improved, re-examined Counseled pt/family regarding: lab results, diagnosis, need for follow-up, rad results <JADE SOLIS - Last Filed: 12/24/19 06:53> - Progress Progress: improved Discussed with : Other (French) <CRISTINA PACHECO - Last Filed: 12/24/19 13:30> - Progress Progress Note: 12/24/19 06:19 Patient states that she cannot use codeine or hydrocodone and makes her very nauseous. She can has Bromfed DM at home. This works well for her. However, we do not have that combination medication here in this hospital. I will provide her with something close to those medications separately. Patient also states that although she cannot take erythromycin, she is able to take azithromycin (Z-Behzad) without any problems. 12/24/19 06:55 I discussed with and transferred care to shift change. I reviewed the patient history, condition, EKG findings, laboratory results. Patient will be following up on the CTA of chest that has been ordered (JADE SOLIS) 12/24/19 08:08 Assumed care of pt at shift change w cough/fever. Pt awaiting CTA of chest for +DD. She is stable w good sats. Lungs appear clear but decreased at bases. Will await CTA results for disposition. 12/24/19 10:45 Pt w pos Covid19 rapid test. OK for admit per Dr. Braswell. 12/24/19 13:28 Rad called w CTA usual Covid19 appearance (CRISTINA PACHECO) <JADE SOLIS - Last Filed: 12/24/19 06:53> - Departure Departure Disposition: Observation Critical Care Time: No <CRISTINA PACHECO - Last Filed: 12/24/19 13:30> - Departure Clinical Impression: COVID-19 Condition: Stable
[2019-12-24] MEDS ORDERED: TYLENOL EXTRA STRENGTH 500 MG PO STA (04:56)
[2019-12-24] MEDS ORDERED: TYLENOL EXTRA STRENGTH 500 MG ONE (05:08)
[2019-12-24] MEDS: Sodium Chloride 0.9% 500 ML 500 ML IV SCH ×2 (05:11→12:09)
[2019-12-24 05:42] LABS: Hematocrit 36.2 % (35-47); Hemoglobin 11.8 gm/dl (12.0-16.0); Mean Cell Volume 92.6 fl (78-100); Mean Corpuscular Hemoglobin 30.2 pg (26-32); Mean Corpuscular Hgb Concent. 32.6 g/dl (32-36); Mean Platelet Volume 10.5 fl (7.5-11.0); Platelet Count 217 K/mm3 (150-450); Red Blood Count 3.91 M/mm3 (4.1-5.4); Red Cell Distribution Width 14.5 % (11.5-14.0); White Blood Count 4.7 K/mm3 (4.0-10.5)
[2019-12-24] MEDS ORDERED: Ventolin Hfa MDI IH SCH (06:00)
[2019-12-24 06:05] LABS: INR 1.25 (0.8-3.0); PROTIME 14.1 SECONDS (9.95-12.35)
[2019-12-24 06:09] LABS: Group A Strep NOT DETECTED (NEGATIVE)
[2019-12-24] MEDS ORDERED: DECADRON 10MG INJ. IV ONE (06:14)
[2019-12-24] MEDS ORDERED: Zithromax 500 MG/ 250 ML NaCl Premix 500 MG/250 ML IVPB IV STA (06:15)
[2019-12-24 06:16] LABS: INFLUENZA A NEGATIVE (NEGATIVE); INFLUENZA B NEGATIVE (NEGATIVE); RESPIRATORY SYNCTIAL VIRUS NEGATIVE (Negative)
[2019-12-24 06:18] LABS: ALBUMIN 3.7 g/dL (3.5-5.0); ALKALINE PHOSPHATASE 61 U/L (38-126); ANION GAP 10.2 MEQ/L (5-15); BLOOD UREA NITROGEN 11 mg/dL (7-17); CHLORIDE 106 mmol/L (98-107); Calcium 8.6 mg/dL (8.4-10.2); Carbon Dioxide 25 mmol/L (22-30); Creatinine 1 0.63 mg/dL (0.52-1.04); EST GLOMERULAR FILTRATION RATE > 60.0 ML/MIN; Glucose 110 mg/dL (74-106); LDH-LACTATE DEHYDROGENASE 249 U/L (120-246); Potassium 3.7 mmol/L (3.5-5.1); SGOT/AST 38 U/L (14-36); SGPT/ALT 24 U/L (0-35); SODIUM 137 mmol/L (137-145); Total Protein 7.2 g/dL (6.3-8.2)
[2019-12-24 06:19] LABS: Appearance SLIGHTLY CLOUDY (CLEAR); Bacteria RARE /HPF (NEGATIVE); Bilirubin NEGATIVE (NEGATIVE); Blood NEGATIVE Ery/ul (0-5); Epithelial Cells RARE /HPF (FEW); Glucose NEGATIVE (NEGATIVE); Hyaline Casts 0-2 /LPF (0-2); Ketones NEGATIVE (NEGATIVE); Leukocyte Esterase NEGATIVE (NEGATIVE); Mucus SLIGHT /HPF (NEGATIVE); Nitrite NEGATIVE (NEGATIVE); Protein,Urine Dip 30 (Negative); RBC 0-2 /HPF (0-2); Specific Gravity 1.024 (1.005-1.025); Urobilinogen NEGATIVE mg/dL (0-1); WBC 0-2 /HPF (0-5)
[2019-12-24] MEDS ORDERED: ROCEPHIN 1 Gm-D5w 50 ml Bag** 1 G/50 ML IVPB IV STA (06:22)
[2019-12-24] MEDS ORDERED: Robitussin-Dm Syrup PO ONE (06:23)
[2019-12-24] MEDS ORDERED: DECADRON 10MG INJ. ONE (06:32)
[2019-12-24] MEDS ORDERED: ROCEPHIN 1 Gm-D5w 50 ml Bag** 1 G/50 ML IVPB IV ONE (06:33)
[2019-12-24] MEDS ORDERED: BENADRYL 12.5 MG/5 ML PO ONE (06:51)
[2019-12-24] MEDS ORDERED: BENADRYL 12.5 MG/5 ML ONE (06:56)
--- NOTE | 2019-12-24 09:11 | XRAY ---
Exam: CT of the chest with IV contrast from 12/24/2019. CTDI: 20.69 mGy Comparison: AP upright portable chest film from 12/24/2019. Indication: 44-year-old female with elevated d-dimer of 875, shortness breath, cough, fever, dizziness for week. Technique: Post-IV contrast axial images were obtained through the chest during automated injection of 80 cc of Isovue-370 contrast material using PE technique. Reconstructed coronal and sagittal images were created and reviewed. Findings: Frontal and lateral CT social scientist images reveal mild elevation of the right hemidiaphragm and evidence of prior cholecystectomy. The pulmonary arteries enhance adequately and reveal no filling defects to suggest clot/emboli. The thoracic aorta reveals no evidence of aneurysm or dissection. The heart size appears within normal limits. There appears to be a small pericardial effusion which measures up to 7 mm in AP dimension anteriorly. The visualized lower portion of the thyroid gland appears unremarkable. Mildly prominent nonspecific lymph nodes are seen within the pretracheal space, pericarinal region, and subcarinal in region. I believe it is likely these represent reactive lymph nodes. No abnormal axillary lymphadenopathy is seen. Some air is seen within the distal thoracic esophageal lumen. I cannot exclude a minimal hiatal hernia. Extensive surgical suture material is seen within the upper abdomen from prior gastric bypass surgery. I also see surgical clips consistent with prior cholecystectomy. The lung bowens appear abnormal revealing bilateral multifocal areas of groundglass opacification, many of them peripherally located. This is entirely consistent with Covid-19 pneumonia. I see no pneumothorax or suspicious soft tissue lung masses. No associated pleural fluid is seen. Mild hepatic steatosis is seen within the upper abdomen. The spleen is borderline to slightly enlarged measuring 13.7 cm in greatest cross-sectional diameter on axial image #225. No focal splenic mass is seen. The adrenal glands appear of normal size and configuration. The visualized pancreas appears grossly unremarkable. The skeleton reveals no acute fracture or aggressive bone lesion. Small anterior vertebral endplate spurs are seen within the thoracic spine. Impression: 1. I see no evidence of acute pulmonary embolism. 2. However, the peripheral lung bowens are very abnormal containing multiple bilateral groundglass opacities, predominantly in a peripheral distribution. These findings are consistent with Covid-19 pneumonia. I personally called this report to the emergency Department at 8:40 AM on 12/24/2019. 3. Mild pericardial effusion. 4. Hepatic steatosis, borderline to slight splenomegaly, evidence of prior cholecystectomy and gastric bypass surgery, and equivocal evidence of a minimal hiatal hernia are seen.
--- NOTE | 2019-12-24 09:27 | XRAY ---
Exam: AP upright portable chest film from 12/24/2019. Comparison: Two-view chest from 12/10/2017. Indication: Cough, shortness of breath, fever. Findings: The transverse heart size appears within normal limits. The pee and mediastinal structures appear unremarkable. There are subtle new scattered bilateral airspace/interstitial opacities, predominantly overlying the lower two thirds of each lung field. This represents a new and unfavorable change from 12/10/2017. This could represent an atypical pneumonia. Covid-19 pneumonia is included in this differential. No pneumothorax or pleural effusion is seen. No acute osseous process is seen. Impression: 1. New abnormal scattered groundglass/interstitial opacities throughout the lower two thirds of each lung representing an unfavorable change from 12/10/2017. The findings are consistent with atypical pneumonia. Covid-19 pneumonia must be considered in this case. Correlate clinically.
[2019-12-24] MEDS ORDERED: Decadron 4 MG INJ IV ONE (10:47)
[2019-12-24] MEDS ORDERED: REMDESIVIR IV ONE (10:48)
[2019-12-24] MEDS ORDERED: Zofran 4 MG/2 ML VIAL IV PRN (10:53)
[2019-12-24] MEDS ORDERED: TYLENOL 325 MG PO PRN (10:53)
[2019-12-24] MEDS ORDERED: Decadron 4 MG INJ ONE (10:55)
[2019-12-24] MEDS ORDERED: Combivent Inhaler COMMON CANISTER IH SCH (11:00)
[2019-12-24] MEDS ORDERED: Sodium Chloride 0.9% 1000 ML 1,000 ML IV SCH ×2 (11:00→17:30)
[2019-12-24 11:08] LABS: Hematocrit 37.4 % (35-47); Hemoglobin 12.1 gm/dl (12.0-16.0); Mean Cell Volume 94.2 fl (78-100); Mean Corpuscular Hemoglobin 30.5 pg (26-32); Mean Corpuscular Hgb Concent. 32.4 g/dl (32-36); Mean Platelet Volume 10.7 fl (7.5-11.0); Platelet Count 230 K/mm3 (150-450); Red Blood Count 3.97 M/mm3 (4.1-5.4); Red Cell Distribution Width 14.6 % (11.5-14.0); White Blood Count 5.1 K/mm3 (4.0-10.5)
[2019-12-24] MEDS ORDERED: REMDESIVIR 200 MG in Sodium Chloride 0.9% 250 ML 250 ML IV SCH (11:30)
[2019-12-24] MEDS: PROTONIX 40 MG IV IV SCH (12:09)
[2019-12-24] MEDS: ENOXAPARIN SODIUM SQ SCH (12:10)
[2019-12-24] MEDS: VENTOLIN COMMON CANISTER IH SCH ×3 (12:52→19:55)
[2019-12-24] MEDS: SYNTHROID 25 MCG PO SCH (16:47)
[2019-12-24] MEDS: Vitamin B-12 500 MCG PO SCH (16:47)
[2019-12-24] MEDS: Calcium 500MG W/Vit D Tablet PO SCH (16:47)
[2019-12-24] MEDS: THERAGRAN MULTIVITAMIN PO SCH (16:47)
[2019-12-24] MEDS: Robitussin-Dm Syrup PO PRN (18:50)
[2019-12-24] MEDS: Decadron 4 MG INJ IV SCH (20:34)
[2019-12-24] MEDS ORDERED: Ativan 1 MG PO SCH (22:00)
[2019-12-24] MEDS ORDERED: CALCIUM CARBONATE 200 MG PO SCH (22:00)
[2019-12-25] MEDS: Robitussin-Dm Syrup PO PRN ×2 (05:26→12:12)
[2019-12-25] MEDS ORDERED: VENTOLIN COMMON CANISTER IH PRN (05:48)
[2019-12-25 06:09] LABS: ALBUMIN 3.5 g/dL (3.5-5.0); ALKALINE PHOSPHATASE 59 U/L (38-126); ANION GAP 10.1 MEQ/L (5-15); BLOOD UREA NITROGEN 11 mg/dL (7-17); CHLORIDE 106 mmol/L (98-107); Calcium 8.9 mg/dL (8.4-10.2); Carbon Dioxide 26 mmol/L (22-30); Creatinine 1 0.55 mg/dL (0.52-1.04); EST GLOMERULAR FILTRATION RATE > 60.0 ML/MIN; Glucose 126 mg/dL (74-106); Potassium 3.9 mmol/L (3.5-5.1); SGOT/AST 58 U/L (14-36); SGPT/ALT 55 U/L (0-35); SODIUM 138 mmol/L (137-145); Total Protein 6.9 g/dL (6.3-8.2)
[2019-12-25] MEDS: VENTOLIN COMMON CANISTER IH SCH ×2 (08:05→11:30)
[2019-12-25] MEDS: Decadron 4 MG INJ IV SCH (09:46)
[2019-12-25] MEDS: THERAGRAN MULTIVITAMIN PO SCH (09:46)
[2019-12-25] MEDS: Vitamin B-12 500 MCG PO SCH (09:46)
[2019-12-25] MEDS: PROTONIX 40 MG IV IV SCH (09:46)
[2019-12-25] MEDS: Calcium 500MG W/Vit D Tablet PO SCH (09:47)
[2019-12-25] MEDS: SYNTHROID 25 MCG PO SCH (09:47)
[2019-12-25] MEDS: ENOXAPARIN SODIUM SQ SCH (09:47)
[2019-12-25] MEDS ORDERED: [UNRECOGNIZED DRUG - OTHER] PO SCH (10:00)
[2019-12-25] MEDS ORDERED: Cyanocobalamin B-12 1000 MCG/ML IJ SCH (10:00)
[2019-12-25] MEDS ORDERED: MULTIVITAMIN PO SCH (10:00)
[2019-12-25] MEDS ORDERED: PROVENTIL 2.5 MG/3 ML NEB IH SCH (10:00)
[2019-12-25] MEDS ORDERED: REMDESIVIR 100 MG in Sodium Chloride 0.9% 100 ML IVPB 100 ML IV SCH (10:00)
[2019-12-25] MEDS ORDERED: CALCIUM CARBONATE PO SCH (10:00)
[2019-12-25] MEDS ORDERED: VITAMIN D3 PO SCH (10:00)
[2019-12-25] MEDS ORDERED: PROTONIX 40 MG IV IV SCH (10:00)
--- NOTE | 2019-12-25 11:51 | HP ---
CHIEF COMPLAINT: Coughing, shortness of breath, extreme fatigue. 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 She said she was tested 10 days ago and was negative, but since that time, she started having shortness of breath, weakness, and felt terrible, so she finally got enough strength to come in and get tested again. She says she is not living with anybody, although she just got a child, as an adoptive type thing, to take care of yesterday. Her mother is available I guess to take care of the child and the dog. Temperature has been up to 102 last night. Has myalgia, decreased taste although it is present. PAST MEDICAL HISTORY: Hypothyroidism, asthma, nonsmoker. She did have a shae-en-y weight loss surgical procedure performed many years ago. No vomiting. No chest pain. HOME MEDICATIONS: Synthroid 25 mcg q day, albuterol 1 puff q day, calcium 500 q day, vitamin D q day, multiple vitamin, B12. ALLERGIES: FLAGYL, MORPHINE, STRAWBERRIES, ARITHROMYCIN BASE, HYDROCODONE, BANANA, CODEINE, EGGS. TRAVEL RISKS: None except for working at the correction. REVIEW OF SYSTEMS: CONSTITUTIONAL: Fever up to 102. HEENT: Tired eyes. CARDIAC: No symptoms. No rheumatic fever. No palpitations. ABDOMEN: No symptoms. GENITOURINARY: No problems. Kidney stones. PSYCH: No history of psychiatric illnesses. DIGITAL MEDIA DIRECTOR: History of fibroids. Cysts on ovaries. SURGERIES: Cholecystectomy, tubal ligation, weight loss surgery 2014. SOCIAL HISTORY: Smoking history - Smoked a pack a day for 5 years numerous years ago. PHYSICAL EXAMINATION: Patient is alert, oriented, pleasant, talkative, and intelligent. Temperature is around 100 degrees, pulse 90, respirations 16, BP 120/69, O2 saturation 94. HEENT: Pupils equal and reactive to light. NECK: Supple without adenopathy. CHEST: Clear. CVS: No murmurs or gallops. ABDOMEN: Soft, no masses or organomegaly. EXTREMITIES: No tenderness. No swelling. IMPRESSION/PLAN: 1. PATIENT IS POSITIVE FOR COVID-19 AND HAS COVID-19 SYMPTOMS AND FINDINGS. She has been treated with Zithromax, Rocephin, and a large dose of Decadron. At this time, will discontinue the Zithromax and Rocephin, adjust her Decadron. Put her on 200 of Remdesivir. Supplemental O2 to keep her O2 above 90 and Ativan PRN sleep. Although she is positive for COVID-19, I think she is stable and she should do well.
--- NOTE | 2019-12-25 11:59 | DS ---
DISCHARGE DIAGNOSIS: 1. COVID-19. 2. COVID-19 PNEUMONIA. 3. HYPOTHYROIDISM. 4. 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 BRIEF HISTORY: Patient woke up short of breath, coughing. Has already been isolated once before for COVID-19 when one of her co-workers had it. She works at the [employer] in [facility]. Said she felt like she had a high fever, chills, just felt terrible, and came to the Emergency Room. There, found her WBC was 4.7, electrolytes were normal. COVID-19 test was positive. Lactic acid was only 1.6. Ferritin was 169. Troponins were negative. D-dimer was only mildly elevated. CT scan didn't show any pulmonary embolism. She was started on dexamethasone IV and Remdesivir 200 q d, 100 q d following that, Ativan for sleep, and Rocephin and Zithromax were discontinued on the 2nd day because she does have a bacterial infection. She improved later on the and on the , she was much better, didn't require O2 except she desaturates slightly at night. She will be discharged home to return to work on the on the same medicine she came in on plus Prednisone 40 X 5, 20 X 5, 10 X 5. She is to call if she becomes short of breath or has high fever. Prognosis is good.
[2019-12-25 13:33] VITALS: O2SAT 94
[2019-12-25 14:31] VITALS: BP 127/66; PULSE 95
== END 2019-12-25 16:14 | disposition home or self-care (01) ==
LOC: ED 04:34 → MED SURG 11:42
PROVIDERS: ADMIT Family Medicine; ATTEND Family Medicine
DX: U07.1 COVID-19 (principal); J12.89 Other viral pneumonia; E03.9 Hypothyroidism, unspecified; M17.0 Bilateral primary osteoarthritis of knee; R53.83 Other fatigue; Z98.84 Bariatric surgery status; Z11.59 Encounter for screening for other viral diseases; Z79.899 Other long term (current) drug therapy
CPT/HCPCS: 36000; 36415; 71045; 71260; 80053; 81001; 82728; 83605; 83615; 84484; 85027; 85379; 85610; 86140; 86308; 87040; 87631; 87651; 93005; 93041; 93268; 94640; 94762; 96365; 96374; 96376; 99285; G0378; U0003; 96375; J0696; J1100; J1650; A9270-GY

== ENCOUNTER 2022-02-18 11:07 | Emergency (ER) | payer OTHER ==
[2022-02-18] MEDS ORDERED: Sodium Chloride 0.9% 1000 ML 1,000 ML IV STA (12:30)
[2022-02-18 12:41] LABS: Absolute Neutrophil Ct (ANC) 3.37 x10^3/uL (1.4-6.9); Basophil (Absolute #) 0.04 x10^3/uL (0-0.4); Eosinophil % 3.8 % (0.00-5.0); Eosinophil (Absolute #) 0.24 x10^3/uL (0-0.5); Hematocrit 38.6 % (35-47); Hemoglobin 12.4 g/dL (12.0-16.0); Lymphocyte (Absolute #) 2.13 x10^3/uL (1.0-4.6); Lymphocytes % 33.8 % (24.0-44.0); Mean Cell Volume 94.4 fL (78-100); Mean Corpuscular Hemoglobin 30.3 pg (26-32); Mean Corpuscular Hgb Concent. 32.1 g/dL (32-36); Mean Platelet Volume 9.9 fL (7.5-11.0); Monocyte (Absolute #) 0.51 x10^3/uL (0.0-1.3); Monocytes % 8.1 % (0.0-12.0); Neutrophil % 53.4 % (36.0-66.0); Platelet Count 356 x10^3/uL (150-450); Red Blood Count 4.09 x10^6/uL (4.1-5.4); Red Cell Distribution Width 13.2 % (11.5-14.0); White Blood Count 6.3 x10^3/uL (4.0-10.5)
[2022-02-18] MEDS ORDERED: Sodium Chloride 0.9% 1000 ML 1,000 ML ONE (12:43)
[2022-02-18 12:49] LABS: ALKALINE PHOSPHATASE 63 U/L (38-126); ANION GAP 9.3 MEQ/L (5-15); BLOOD UREA NITROGEN 14 mg/dL (7-17); CHLORIDE 107 mmol/L (98-107); Calcium 8.7 mg/dL (8.4-10.2); Carbon Dioxide 25 mmol/L (22-30); Creatinine 1 0.69 mg/dL (0.52-1.04); EST GLOMERULAR FILTRATION RATE > 60.0 ML/MIN; Glucose 99 mg/dL (74-106); Potassium 4.2 mmol/L (3.5-5.1); SGOT/AST 31 U/L (14-36); SGPT/ALT 29 U/L (0-35); SODIUM 137 mmol/L (137-145); Total Protein 7.1 g/dL (6.3-8.2)
[2022-02-18 12:50] LABS: Epithelial Cells RARE /HPF (FEW); Mucus SLIGHT /HPF (NEGATIVE); RBC 0-2 /HPF (0-2); WBC 0-2 /HPF (0-5)
[2022-02-18 12:53] LABS: Appearance SLIGHTLY CLOUDY (CLEAR)
[2022-02-18 12:54] LABS: Bilirubin NEGATIVE (NEGATIVE); Dipstick done @ ? MAIN LAB; Glucose NEGATIVE (NEGATIVE); Ketones NEGATIVE (NEGATIVE); Nitrite NEGATIVE (NEGATIVE); Ph 5.5 (5-6); Protein,Urine Dip NEGATIVE (Negative); RBC MODERATE Ery/ul (0-5); Specific Gravity 1.025 (1.005-1.025); Urine Cultured Indicated? NO; Urobilinogen 0.2 mg/dL (0-1)
--- NOTE | 2022-02-18 13:07 | XRAY ---
Indication: Dizziness. Elevated blood pressure. Multiple contiguous axial images obtained through the head without contrast. Comparison: None Normal appearing brain parenchyma, ventricles, and bony calvarium. Visualized paranasal sinuses and mastoid air cells are clear. Impression: Normal CT head without contrast exam.
--- NOTE | 2022-02-18 13:08 | XRAY ---
Indication: Dizziness. Elevated blood pressure. Comparison: September 16, 2020 Portable chest again demonstrates normal heart and lungs. Bony thorax intact. No new/acute findings.
[2022-02-18 13:18] LABS: Amphetamine,Urine NEGATIVE (NEGATIVE); Barbiturate,Urine NEGATIVE (NEGATIVE); Benzodiazepine,Urine NEGATIVE (NEGATIVE); Cocaine,Urine NEGATIVE (NEGATIVE); Methadone,Urine NEGATIVE (NEGATIVE); Opiate,Urine NEGATIVE (NEGATIVE); PCP,Urine NEGATIVE (NEGATIVE); THC,Urine NEGATIVE (NEGATIVE)
--- NOTE | 2022-02-18 14:07 | ERPHSYRPT ---
- History of Present Illness Time Seen by Provider: 02/18/22 11:14 Source: patient Exam Limitations: physical impairment Patient Subjective Stated Complaint: Pt has had 3 episodes of feeling dizzy in the past 3 months, she wrote it off to stress, today it began around 0830 and she was at work at [employer] and they took her blood pressure and it was 186/110 and they gave her a clonidine 0.1mg, pt did find her adult foster child 3 months ago too and pt was placed on Lexapro 2 months ago Triage Nursing Assessment: Pt was brought to the ER by her father, deven smith, denies pain, is feeling better than she did now that her pressure is lower, has been under a lot of stress lately, has never had BP issues before, pulses normal, skin n/w/d, denies ORTEGA/dizziness/or pain at this time, doesn't appear to be in any distress Physician History: 47 years old female with history of anxiety, depression presented in the ER with chief complaint of dizziness. Patient reports she has been having off-and-on dizziness for the last 3 months and today was her third episode. Usually her symptoms improve in 10 to 15 minutes but it took longer today. Patient reports she was working and all of a sudden she started feeling spinning sensation with mild nausea but no vomiting. She felt as if she was going to pass out. Her co workers checked her blood pressure and it was 180 systolic and she has no history of hypertension. She was given oral clonidine and is sent in here. Patient report her symptoms are improved. She denies any chest pain palpitations/pounding of the heart, shortness of breath etc. No fever or chills reported. Denies any focal numbness tingling or weakness. Does have history of migraine and had an episode yesterday and still having some frontal headache. Now she feels weak fatigued and tired. Timing/Duration: today, resolved prior to arrival Severity: moderate Character of Deficits: none Deficits: no difficulties Baseline/Normal Cognition: alert oriented x 3 Current Cognition: alert oriented x 3 Baseline Gait: walks w/o assistance Associated Symptoms: denies symptoms Allergies/Adverse Reactions: metronidazole [From Flagyl] Allergy (Intermediate, Verified 02/18/22 11:43) Swelling of Tongue and Lips Metronidazole HCl [From Flagyl] Allergy (Intermediate, Verified 02/18/22 11:43) Swelling of Tongue and Lips morphine Allergy (Mild, Verified 02/18/22 11:43) Swelling strawberry [[place]] Allergy (Mild, Verified 02/18/22 11:43) Hives erythromycin base [Erythromycin Base] Adverse Reaction (Mild, Verified 02/18/22 11:43) Vomiting hydrocodone bitartrate [From Vicodin] Adverse Reaction (Mild, Verified 02/18/22 11:43) Vomiting banana [Banana] Adverse Reaction (Verified 02/18/22 11:43) Vomiting codeine [Codeine] Adverse Reaction (Verified 02/18/22 11:43) Vomiting egg Adverse Reaction (Verified 02/18/22 11:43) Vomiting Home Medications: Levothyroxine Sodium [Synthroid] 25 mcg PO DAILY 12/05/12 [History] Albuterol 2.5 mg/3 ml Neb [Proventil 2.5 mg/3 ml Neb] 2.5 mg IH DAILY 11/05/14 [History] Calcium Carbonate [Calcium] 200 mg PO TID 11/05/14 [History] Calcium Carbonate/Vitamin D3 [Calcium 600-Vit D3 800 Caplet] 1 each PO DAILY 11/05/14 [History] Multivitamin [Children's Multivitamins] 2 each PO DAILY 11/05/14 [History] Cyanocobalamin (Vitamin B-12) [Cobal-1000] 1 ml SL DAILY 12/10/17 [History] Hx Tetanus, Diphtheria Vaccination/Date Given: No Hx Influenza Vaccination/Date Given: No Hx Pneumococcal Vaccination/Date Given: No Travel Risk - International Travel Have you traveled outside of the country in past 3 weeks: No - Coronavirus Screening Are you exhibiting any of the following symptoms?: No Close contact with a COVID-19 positive Pt in past 14-21 Days: No - Vaccine Status Have you recieved a Covid-19 vaccination: No - Review of Systems Constitutional: Fatigue, Weakness Eyes: No Symptoms Ears, Nose, & Throat: No Symptoms Respiratory: No Symptoms Cardiac: No Symptoms Abdominal/Gastrointestinal: Nausea Genitourinary Symptoms: No Symptoms Musculoskeletal: No Symptoms Skin: No Symptoms Neurological: Dizziness, Headache Psychological: Anxiety, Depression Endocrine: No Symptoms Hematologic/Lymphatic: No Symptoms Immunological/Allergic: No Symptoms - Past Medical History Pertinent Past Medical History: Yes Neurological History: No Pertinent History ENT History: No Pertinent History Cardiac History: No Pertinent History Respiratory History: Asthma Endocrine Medical History: Hypothyroidism Musculoskeletal History: No Pertinent History GI Medical History: No Pertinent History, Gallbladder Disease History: Other Psycho-Social History: Anxiety Female Reproductive Disorders: Fibroids, Other Other Medical History: pt hx of kidney stones about seven years ago..passed them. Cysts on ovaries - Past Surgical History Past Surgical History: Yes Neuro Surgical History: No Pertinent History Cardiac: No Pertinent History Respiratory: No Pertinent History Gastrointestinal: Cholecystectomy Genitourinary: No Pertinent History Musculoskeletal: No Pertinent History Female Surgical History: Tubal Ligation, Other Other Surgical History: uterine ablation. WEIGHT LOSS SURGERY 2014 - Social History Smoking Status: Never smoker How long have you smoked: 5 YEARS Exposure to second hand smoke: No Drug Use: none Patient Lives Alone: No - Female History Hx Last Menstrual Period: 02/17/2022 Hx Now: No - Nursing Vital Signs Nursing Vital Signs: Initial Vital Signs Temperature 97.3 F 02/18/22 11:31 Pulse Rate 84 02/18/22 11:31 Blood Pressure 132/61 02/18/22 11:31 O2 Sat by Pulse Oximetry 98 02/18/22 11:31 Pain Scale Pain Intensity 0 - Rachell Coma Scale Best Eye Response ([place]): (4) open spontaneously Best Verbal Response (Rachell): (5) oriented Best Motor Response ([place]): (6) obeys commands [place] Total: 15 - Physical Exam General Appearance: no apparent distress, alert, anxiety Eye Exam: bilateral eye: normal inspection, PERRL, EOMI Ears, Nose, Throat Exam: normal ENT inspection, TMs normal, pharynx normal, moist mucous membranes Neck Exam: normal inspection, non-tender, supple, full range of motion Respiratory: normal breath sounds, accessory muscle use Cardiovascular: regular rate/rhythm, normal heart sounds Gastrointestinal: soft, normal bowel sounds, No tenderness Back Exam: normal inspection, normal range of motion Extremity Exam: normal inspection, normal range of motion, pelvis stable Mental Status: alert, oriented x 3, cooperative, depressed affect earth moving machine operator Exam: normal hearing, normal speech, PERRL Coordination/Gait: normal finger to nose, normal gait, normal cerebellar function Motor/Sensory: no motor deficit, no sensory deficit, no pronator drift, negative Babinski's sign DTR: bicep (R): 2+, bicep (L): 2+, knee (R): 2+, knee (L): 2+ Skin Exam: normal color SpO2 Interpretation: normal SpO2: 98 O2 Delivery: Room Air - Course EKG Interpreted by Me: RATE (57), Sinus Memo, NORMAL AXIS, NORMAL INTERVALS, NORMAL QRS Ordered Tests: Active Orders 24 hr Category Date Time Status EKG-ER Only STAT Care 02/18/22 12:30 Completed IV Insertion STAT Care 02/18/22 12:30 Completed Orthostatic Vital Signs STAT Care 02/18/22 12:30 Completed CHEST 1 VIEW (PORTABLE) Stat Exams 02/18/22 12:30 Completed HEAD WITHOUT CONTRAST [CT] Stat Exams 02/18/22 12:30 Completed MRI BRAIN W & W/O CONTRAST [MRI] Stat Exams 02/18/22 16:04 Completed CBC W DIFF Stat Lab 02/18/22 12:30 Completed CMP Stat Lab 02/18/22 12:30 Completed Lactic Acid Stat Lab 02/18/22 12:30 Completed MAGNESIUM Stat Lab 02/18/22 12:30 Completed TROPONIN Q4H Lab 02/18/22 12:30 Completed UA W/RFX CULTURE Stat Lab 02/18/22 Completed Urine Triage Profile Stat Lab 02/18/22 13:04 Completed Medication Summary Discontinued Medications Generic Name Dose Route Start Last Admin Trade Name Freq PRN Reason Stop Dose Admin Sodium Chloride 1,000 mls @ 999 mls/hr 02/18/22 12:30 02/18/22 14:27 Sodium Chloride 0.9% 1000 Ml IV 02/18/22 13:30 Infused .Q1H1M STA Infusion Sodium Chloride Confirm 02/18/22 12:43 Sodium Chloride 0.9% 1000 Ml Administered 02/18/22 12:44 Dose 1,000 mls @ ud .ROUTE .STK-MED ONE Ondansetron HCl 4 mg 02/18/22 17:21 02/18/22 17:22 Ondansetron Hcl 4 Mg/2 Ml Vial IV 02/18/22 17:22 4 mg STAT ONE Administration Ondansetron HCl Confirm 02/18/22 17:21 Ondansetron Hcl 4 Mg/2 Ml Vial Administered 02/18/22 17:22 Dose 4 mg .ROUTE .STK-MED ONE Lab/Rad Data: Laboratory Result Diagrams 02/18/22 12:30 02/18/22 12:30 Laboratory Results 02/18/22 02/18/22 02/18/22 Range/Units Unknown 13:04 12:30 WBC (4.0-10.5) x10^3/uL RBC (4.1-5.4) x10^6/uL Hgb (12.0-16.0) g/dL Hct (35-47) % MCV (78-100) fL MCH (26-32) pg MCHC (32-36) g/dL RDW (11.5-14.0) % Plt Count (150-450) x10^3/uL MPV (7.5-11.0) fL Gran % (36.0-66.0) % Immature Gran % (Auto) (0.00-0.4) % Nucleat RBC Rel Count (0.00-0.1) % Eos # (Auto) (0-0.5) x10^3/uL Immature Gran # (Auto) (0.00-0.03) x10^3u/L Absolute Lymphs (auto) (1.0-4.6) x10^3/uL Absolute Monos (auto) (0.0-1.3) x10^3/uL Absolute Nucleated RBC (0.00-0.01) x10^3u/L Lymphocytes % (24.0-44.0) % Monocytes % (0.0-12.0) % Eosinophils % (0.00-5.0) % Basophils % (0.0-0.4) % Absolute Granulocytes (1.4-6.9) x10^3/uL Basophils # (0-0.4) x10^3/uL Sodium 137 (137-145) mmol/L Potassium 4.2 (3.5-5.1) mmol/L Chloride 107 (98-107) mmol/L Carbon Dioxide 25 (22-30) mmol/L Anion Gap 9.3 (5-15) MEQ/L BUN 14 (7-17) mg/dL Creatinine 0.69 (0.52-1.04) mg/dL Estimated GFR > 60.0 ML/MIN Glucose 99 (74-106) mg/dL Lactic Acid (0.4-2.0) Calcium 8.7 (8.4-10.2) mg/dL Magnesium 2.0 (1.6-2.3) mg/dL Total Bilirubin 0.30 (0.2-1.3) mg/dL AST 31 (14-36) U/L ALT 29 (0-35) U/L Alkaline Phosphatase 63 (38-126) U/L Troponin I (0.000-0.034) ng/mL Serum Total Protein 7.1 (6.3-8.2) g/dL Albumin 4.0 (3.5-5.0) g/dL Urinalys Dipstick Clnc MAIN LAB Urine Color YELLOW (YELLOW) Urine Appearance SLIGHTLY CLOUDY A (CLEAR) Urine pH 5.5 (5-6) Ur Specific [place] 1.025 (1.005-1.025) POC Urine Protein Conf NEGATIVE (Negative) Urine Ketones NEGATIVE (NEGATIVE) Urine Nitrite NEGATIVE (NEGATIVE) Urine Bilirubin NEGATIVE (NEGATIVE) Urine Urobilinogen 0.2 (0-1) mg/dL Urine Leukocytes NEGATIVE (NEGATIVE) Urine WBC (Auto) 0-2 (0-5) /HPF Urine RBC (Auto) 0-2 (0-2) /HPF U Epithel Cells (Auto) RARE (FEW) /HPF Urine Bacteria (Auto) Not Reportable Urine RBC MODERATE A (0-5) Myles/ul Urine Mucus (Auto) SLIGHT A (NEGATIVE) /HPF Ur Culture Indicated? NO Urine Glucose NEGATIVE (NEGATIVE) mg/dL Urine Opiates Level NEGATIVE (NEGATIVE) Ur Methadone NEGATIVE (NEGATIVE) Urine Barbiturates NEGATIVE (NEGATIVE) Ur Phencyclidine (PCP) NEGATIVE (NEGATIVE) Urine Amphetamine NEGATIVE (NEGATIVE) U Benzodiazepine Level NEGATIVE (NEGATIVE) Urine Cocaine NEGATIVE (NEGATIVE) Urine Marijuana (THC) NEGATIVE (NEGATIVE) 02/18/22 02/18/22 02/18/22 Range/Units 12:30 12:30 12:30 WBC 6.3 (4.0-10.5) x10^3/uL RBC 4.09 L (4.1-5.4) x10^6/uL Hgb 12.4 (12.0-16.0) g/dL Hct 38.6 (35-47) % MCV 94.4 (78-100) fL MCH 30.3 (26-32) pg MCHC 32.1 (32-36) g/dL RDW 13.2 (11.5-14.0) % Plt Count 356 (150-450) x10^3/uL MPV 9.9 (7.5-11.0) fL Gran % 53.4 (36.0-66.0) % Immature Gran % (Auto) 0.3 (0.00-0.4) % Nucleat RBC Rel Count 0.0 (0.00-0.1) % Eos # (Auto) 0.24 (0-0.5) x10^3/uL Immature Gran # (Auto) 0.02 (0.00-0.03) x10^3u/L Absolute Lymphs (auto) 2.13 (1.0-4.6) x10^3/uL Absolute Monos (auto) 0.51 (0.0-1.3) x10^3/uL Absolute Nucleated RBC 0.00 (0.00-0.01) x10^3u/L Lymphocytes % 33.8 (24.0-44.0) % Monocytes % 8.1 (0.0-12.0) % Eosinophils % 3.8 (0.00-5.0) % Basophils % 0.6 (0.0-0.4) % Absolute Granulocytes 3.37 (1.4-6.9) x10^3/uL Basophils # 0.04 (0-0.4) x10^3/uL Sodium (137-145) mmol/L Potassium (3.5-5.1) mmol/L Chloride (98-107) mmol/L Carbon Dioxide (22-30) mmol/L Anion Gap (5-15) MEQ/L BUN (7-17) mg/dL Creatinine (0.52-1.04) mg/dL Estimated GFR ML/MIN Glucose (74-106) mg/dL Lactic Acid 1.1 (0.4-2.0) Calcium (8.4-10.2) mg/dL Magnesium (1.6-2.3) mg/dL Total Bilirubin (0.2-1.3) mg/dL AST (14-36) U/L ALT (0-35) U/L Alkaline Phosphatase (38-126) U/L Troponin I < 0.012 (0.000-0.034) ng/mL Serum Total Protein (6.3-8.2) g/dL Albumin (3.5-5.0) g/dL Urinalys Dipstick Clnc Urine Color (YELLOW) Urine Appearance (CLEAR) Urine pH (5-6) Ur Specific [place] (1.005-1.025) POC Urine Protein Conf (Negative) Urine Ketones (NEGATIVE) Urine Nitrite (NEGATIVE) Urine Bilirubin (NEGATIVE) Urine Urobilinogen (0-1) mg/dL Urine Leukocytes (NEGATIVE) Urine WBC (Auto) (0-5) /HPF Urine RBC (Auto) (0-2) /HPF U Epithel Cells (Auto) (FEW) /HPF Urine Bacteria (Auto) Urine RBC (0-5) Myles/ul Urine Mucus (Auto) (NEGATIVE) /HPF Ur Culture Indicated? Urine Glucose (NEGATIVE) mg/dL Urine Opiates Level (NEGATIVE) Ur Methadone (NEGATIVE) Urine Barbiturates (NEGATIVE) Ur Phencyclidine (PCP) (NEGATIVE) Urine Amphetamine (NEGATIVE) U Benzodiazepine Level (NEGATIVE) Urine Cocaine (NEGATIVE) Urine Marijuana (THC) (NEGATIVE) - Progress Progress: improved Progress Note: 02/18/22 18:05 47-year-old is evaluated for vertiginous symptoms. She has borderline positive orthostatics, given fluid bolus, feeling much better. Obtain CT head which is e ssentially unremarkable. Lab work grossly unremarkable. EKG sinus rhythm with no arrhythmia/ischemic changes and negative troponin. SOC neurology consult is obtained who recommended MRI with and without contrast which is essentially unremarkable. SOC is consulted again and he recommended discharge with outpatient follow-up as her symptoms seems to be labyrinthitis/peripheral vertigo. At this point patient does not have any symptoms, her symptoms are not every day basis and not interested in meclizine. Recommended outpatient follow-up. Discussed signs symptoms of worsening needing return to ER which she seems understanding. Discussed with : Other Counseled pt/family regarding: lab results, diagnosis, rad results - Departure Departure Disposition: Home Clinical Impression: Vestibulopathy Condition: Stable Critical Care Time: No Referrals: MAHSA MAYERS MD [Primary Care Provider] - Follow Up with PCP/3 days Instructions: Vertigo (a Type of Dizziness) (DC) Additional Instructions: Follow-up with primary care for reevaluation and may need referral for neurology. Return to ER for any worsening of symptoms or if having numbness tingling focal weakness, visual disturbance etc.
--- NOTE | 2022-02-18 17:10 | XRAY ---
Indication: Dizziness. Elevated blood pressure. Sagittal, coronal, and axial MRI brain performed using pre and post T1, T2, FLAIR, diffusion, and ADC sequences. 15 cc Dotarem contrast used. Comparison: None Ventriculosulcal pattern appears symmetric. No acute intracranial hemorrhage, abnormal extra-axial fluid collection, or mass effect. Diffusion images are negative for restricted signal. Following gadolinium, there is no abnormal enhancing intra or extra-axial mass. Fourth ventricle is midline without hydrocephalus. 7/8 cranial nerve complex bilaterally symmetric. Normal flow void signal within the major intracerebral circulation. Normal appearing craniocervical junction and sella turcica. Paranasal sinuses are clear. Impression: Normal MRI brain with contrast exam, consistent with normal same day CT head exam.
[2022-02-18] MEDS ORDERED: Zofran 4 MG/2 ML VIAL IV ONE (17:21)
[2022-02-18] MEDS ORDERED: Zofran 4 MG/2 ML VIAL ONE (17:21)
[2022-02-18 18:06] VITALS: O2SAT 98
[2022-02-18 18:07] VITALS: BP 104/60; PULSE 64
== END 2022-02-18 18:14 | disposition home or self-care (01) ==
LOC: ED 11:07
DX: H81.20 Vestibular neuronitis, unspecified ear (principal); R51.9 Headache, unspecified; Z79.899 Other long term (current) drug therapy; Z28.310 Unvaccinated for COVID-19
CPT/HCPCS: 36000; 36415; 70450; 70553; 71045; 80053; 80307; 81015; 83605; 83735; 84484; 85025; 93005; 96374; 99284; J2405

== ENCOUNTER 2022-04-01 16:43 | Emergency (ER) | payer OTHER ==
[2022-04-01 17:02] VITALS: BP 144/90; PULSE 101; O2SAT 96
[2022-04-01] MEDS ORDERED: TORAdol 30 mg Injection IM ONE (17:23)
[2022-04-01] MEDS ORDERED: TORAdol 30 mg Injection ONE (17:28)
--- NOTE | 2022-04-01 17:57 | ERPHSYRPT ---
- History of Present Illness Time Seen by Provider: 04/01/22 16:46 Source: patient Exam Limitations: no limitations Patient Subjective Stated Complaint: Jayce rib pain Triage Nursing Assessment: Patient ambulated back to ED and transferred self to bed. Patient A+O x3. Patient's skin pink, warm and dry. Patient complains of jayce rib pain 2/10 intermittent sharp pain. Patient currently being treated with Z behzad for pneumonia. Lungs noted to be diminished throughout. Physician History: 47 years old female presented in the ER with chief complaint of bilateral rib pain with deep breathing and coughing. Patient reports she has been dealing with cough congestion for almost a month and was recently seen at [facility], was started on Z-Behzad, breathing treatments and steroids 2 days ago and was told that lower part of her lungs are not fully open. Today she is feeling better breathing workman but whenever she coughs or takes a deep breath it hurts bilaterally across the chest but no difficulty breathing otherwise. Overall patient reports she is feeling better but this scared her and wants to make sure everything is okay. No fever or chills reported Timing/Duration: day(s) (1), intermittent, worse Severity: moderate Modifying Factors: Worsens With: movement Associated Symptoms: chest pain, No fever Allergies/Adverse Reactions: metronidazole [From Flagyl] Allergy (Intermediate, Verified 04/01/22 16:55) Swelling of Tongue and Lips Metronidazole HCl [From Flagyl] Allergy (Intermediate, Verified 04/01/22 16:55) Swelling of Tongue and Lips morphine Allergy (Mild, Verified 04/01/22 16:55) Swelling strawberry [[place]] Allergy (Mild, Verified 04/01/22 16:55) Hives erythromycin base [Erythromycin Base] Adverse Reaction (Mild, Verified 04/01/22 16:55) Vomiting hydrocodone bitartrate [From Vicodin] Adverse Reaction (Mild, Verified 04/01/22 16:55) Vomiting banana [Banana] Adverse Reaction (Verified 04/01/22 16:55) Vomiting codeine [Codeine] Adverse Reaction (Verified 04/01/22 16:55) Vomiting egg Adverse Reaction (Verified 04/01/22 16:55) Vomiting Home Medications: Levothyroxine Sodium [Synthroid] 25 mcg PO DAILY 12/05/12 [History] Albuterol 2.5 mg/3 ml Neb [Proventil 2.5 mg/3 ml Neb] 2.5 mg IH DAILY 11/05/14 [History] Calcium Carbonate [Calcium] 200 mg PO TID 11/05/14 [History] Calcium Carbonate/Vitamin D3 [Calcium 600-Vit D3 800 Caplet] 1 each PO DAILY 11/05/14 [History] Multivitamin [Children's Multivitamins] 2 each PO DAILY 11/05/14 [History] Cyanocobalamin (Vitamin B-12) [Cobal-1000] 1 ml SL DAILY 12/10/17 [History] Hx Tetanus, Diphtheria Vaccination/Date Given: No Hx Influenza Vaccination/Date Given: No Hx Pneumococcal Vaccination/Date Given: No Immunizations Up to Date: Yes Travel Risk - International Travel Have you traveled outside of the country in past 3 weeks: Yes If Yes, where;: [facility] - Coronavirus Screening Are you exhibiting any of the following symptoms?: No Close contact with a COVID-19 positive Pt in past 14-21 Days: No - Vaccine Status Have you recieved a Covid-19 vaccination: No - Review of Systems Constitutional: No Symptoms Eyes: No Symptoms Ears, Nose, & Throat: No Symptoms Respiratory: Cough, Dyspnea Cardiac: Chest Pain Abdominal/Gastrointestinal: No Symptoms Genitourinary Symptoms: No Symptoms Musculoskeletal: No Symptoms Neurological: No Symptoms Psychological: No Symptoms Endocrine: No Symptoms Hematologic/Lymphatic: No Symptoms Immunological/Allergic: No Symptoms - Past Medical History Pertinent Past Medical History: Yes Neurological History: No Pertinent History ENT History: No Pertinent History Cardiac History: No Pertinent History Respiratory History: Asthma Endocrine Medical History: Hypothyroidism Musculoskeletal History: No Pertinent History GI Medical History: No Pertinent History, Gallbladder Disease History: Other Psycho-Social History: Anxiety Female Reproductive Disorders: Fibroids, Other Other Medical History: pt hx of kidney stones about seven years ago..passed them. Cysts on ovaries - Past Surgical History Past Surgical History: Yes Neuro Surgical History: No Pertinent History Cardiac: No Pertinent History Respiratory: No Pertinent History Gastrointestinal: Cholecystectomy Genitourinary: No Pertinent History Musculoskeletal: No Pertinent History Female Surgical History: Tubal Ligation, Other Other Surgical History: uterine ablation. WEIGHT LOSS SURGERY 2014 - Social History Smoking Status: Never smoker How long have you smoked: 5 YEARS Exposure to second hand smoke: No Drug Use: none Patient Lives Alone: No - Female History Hx Last Menstrual Period: 2 weeks ago Hx Now: No - Nursing Vital Signs Nursing Vital Signs: Initial Vital Signs Temperature 97.8 F 04/01/22 16:56 Pulse Rate 101 H 04/01/22 16:56 Respiratory Rate 18 04/01/22 16:56 Blood Pressure 144/90 04/01/22 16:56 O2 Sat by Pulse Oximetry 96 04/01/22 16:56 Pain Scale Pain Intensity 2 - Physical Exam General Appearance: no apparent distress, alert Eye Exam: PERRL/EOMI Ears, Nose, Throat Exam: normal ENT inspection Neck Exam: normal inspection, supple, full range of motion Respiratory Exam: normal breath sounds, lungs clear, No chest tenderness Cardiovascular Exam: regular rate/rhythm, normal heart sounds Gastrointestinal/Abdomen Exam: soft, No tenderness Back Exam: normal inspection, normal range of motion Extremity Exam: normal inspection, normal range of motion Neurologic Exam: alert, oriented x 3, cooperative Skin Exam: normal color SpO2 Interpretation: normal SpO2: 96 O2 Delivery: Room Air Ordered Tests: Active Orders 24 hr Category Date Time Status CHEST 1 VIEW (PORTABLE) Stat Exams 04/01/22 17:23 Ordered Medication Summary Discontinued Medications Generic Name Dose Route Start Last Admin Trade Name Gauravq PRN Reason Stop Dose Admin Ketorolac Tromethamine 30 mg 04/01/22 17:23 04/01/22 17:32 Ketorolac Tromethamine 30 Mg/Ml Inj IM 04/01/22 17:24 30 mg STAT ONE Administration Ketorolac Tromethamine Confirm 04/01/22 17:28 Ketorolac Tromethamine 30 Mg/Ml Inj Administered 04/01/22 17:29 Dose 30 mg .ROUTE .STK-MED ONE - Progress Progress: improved Progress Note: 04/01/22 17:56 Patient is not tachypneic and not in any distress at all. She is very anxious. I have repeated x-rays which actually look better to me when compared with x- rays 2 days ago. I believe patient has pleurisy, recommended continue with steroids and neb treatments, deep breathing exercises and outpatient follow-up. Discussed signs symptoms of worsening needing return to ER which he seems understanding. Counseled pt/family regarding: diagnosis, need for follow-up, rad results - Departure Departure Disposition: Home Clinical Impression: Pleurisy Condition: Stable Critical Care Time: No Referrals: MAHSA MAYERS MD [Primary Care Provider] - Follow Up with PCP/3 days Instructions: Pleuritic Chest Pain (DC) Additional Instructions: Take Tylenol/ibuprofen, do deep breathing exercises, continue with current treatment. Follow-up with primary care for reevaluation. Return to ER for worsening pain or if having difficulty breathing, palpitations etc.
--- NOTE | 2022-04-02 08:13 | XRAY ---
Indication: Left lower chest pain. Comparison: March 30, 2022 Portable chest inflated and is now clear. Heart not enlarged. No new/acute findings.
== END 2022-04-01 18:21 | disposition home or self-care (01) ==
LOC: ED 16:43
DX: R09.1 Pleurisy (principal); R05.9 Cough, unspecified; Z79.899 Other long term (current) drug therapy; Z28.310 Unvaccinated for COVID-19
CPT/HCPCS: 71045; 96372; 99283; J1885